=== PATIENT | male | born 1995 | race Two or more races ===

== ENCOUNTER 2020-06-06 20:51 | Emergency (ER) | payer SELFPAY ==
[2020-06-06 20:59] VITALS: BP 152/89; PULSE 119; RESP 18; TEMP 36.9; O2SAT 96; BMI 45.9
[2020-06-06 21:12] LABS: Glucose Urine UA >=1000 MG/DL (NEG); Leukocyte Esterase Urine NEG (NEG); Nitrite Urine NEG (NEG); Specific Gravity - Urine <= 1.005 (1.005-1.025); Urine Blood NEG (NEG); Urine Ketones NEG (NEG); Urine Protein NEG (NEG-TRACE)
[2020-06-06 21:14] LABS: Appearance Urine CLEAR; Color Urine YELLOW
[2020-06-06 21:17] LABS: RBC Urine 0 /HPF (0); WBC Urine 0 /HPF (0-4)
--- NOTE | 2020-06-06 21:33 | ED_ITS ---
HPI - Male Genitourinary General Chief complaint: Urogenital-Male Stated complaint: urinary frequency Time Seen by Provider: 06/06/20 21:17 Source: patient Mode of arrival: ambulatory Limitations: no limitations History of Present Illness HPI Narrative: patient comes to emergency room complaining of 1 week of incre ased urination and thirst. Patient states both of his parents are diabetic and his concern that he may have diabetes. Patient denies any abdominal pain, no changes in weight, no pain with urination. patient states that he has been urinating approximately 15-20 times per day Related Data Previous Rx's Medication Instructions Recorded metformin 500 mg PO BID #90 tab 06/07/20 Allergies Allergy/AdvReac Type Severity Reaction Status Date / Time peach [PEACH] Allergy Intermediate ITCHING Verified 06/06/20 20:59 avocado Allergy Anaphylaxis Verified 06/06/20 20:59 SEASONAL ALLERGIES Allergy Unknown RUNNY NOSE Uncoded 03/26/20 16:26 Review of Systems Review of Systems: Constitutional : No Weight loss, No Fever, No Chills, No Night Sweats, No Fatigue, No Malaise ENT/Mouth : No Hearing loss, No Ear Pain, No Nasal Congestion, No Sinus Pain, No Hoarseness, No sore throat, No Rhinorrhea, No Swallowing Difficulty Eyes: No Eye Pain, No Swelling, No Redness, No Foreign Body, No Discharge, No Vision Changes Cardiovascular : No Chest Pain, No SOB, No Dyspnea on Exertion, No Orthopnea, No Edema, No Palpitations Respiratory : No Cough, No Sputum, No Wheezing, No Smoke Exposure, No Dyspnea Gastrointestinal : No Nausea, No Vomiting, No Diarrhea, No Constipation, No abdominal Pain, No Hematochezia, No Melena Genitourinary : no irregular bleeding, No Dysuria, No Urinary Frequency, No Hematuria, No Urinary Incontinence, No Urgency, No Flank Pain, No Urinary Flow Changes, No Hesitancy Musculoskeletal : No joint pain, No Myalgias, No Joint Swelling Skin : No Skin Lesions, No rash Neuro : No Weakness, No Numbness, No Paresthesias, No Loss of Consciousness, No Dizziness, No Headache Psych : No Anxiety/Panic, No Depression, No SI/HI/AH/VH, No Social Issues, Heme/Lymph: No Bruising, No Bleeding,No Lymphadenopathy Endocrine : complaining of polyuria and polydipsia, No Temperature Intolerance PMFSH Past Medical History Medical History Pneumothorax Surgical History (Updated 06/06/20 @ 21:02 by Emmie Levine) History of appendectomy Social History Social History Smoked in Last 30 Days: Yes Use of substances other than those prescribed or required for medical reasons: No Advance Directives: No Advance Directives Information Provided: Yes Physical Exam Vital Signs: Vital Signs: Last Vital Signs Temp 98.0 F 06/07/20 01:30 Pulse 97 06/07/20 01:30 Resp 18 06/07/20 01:30 BP 132/80 06/07/20 01:30 Pulse Ox 99 06/07/20 01:30 Body Mass Index 45.9 Appearance: Alert. Oriented X3. No acute distress. Eyes: Pupils equal, round and reactive to light. ENT: Pharynx normal. Neck: Normal inspection. Neck supple. No lymph nodes noted. No crepitus CVS: Normal heart rate and rhythm. Pulses normal. Normal S1 and S2 Respiratory: No respiratory distress. Breath sounds normal. No Wheezing. No rales Abdomen: Soft and nontender. No rigidity. No distention. good BS x4 Skin: Skin warm and dry. Normal skin color. Normal skin turgor. Extremities: No lower extremity edema. No lower extremity edema. No Lacerations. No Rash Neuro: Oriented X 3. No motor deficit. No sensory deficit. Moving all extermities. No slurred speech. Course Course Course Narrative: patient had 20 units of insulin and 1.5 L NS, BG now 405. Plan is to check BS again after 2L total, likely d/c home with DM meds sign out given to Dr. Nguyễn MDM - Male Genitourinary Lab Data Result diagrams: 06/06/20 22:14 06/06/20 22:14 Labs: Lab Results 06/06/20 06/06/20 06/06/20 Range/Units 21:03 22:14 22:14 WBC 8.4 (4.8-10.8) X10*3/uL RBC 5.48 (4.60-5.80) X10*6/uL Hgb 15.6 (14.0-18.0) g/dl Hct 44.6 (42-52) % MCV 81.4 (80-98) fL MCH 28.5 (27.0-33.0) pg MCHC 35.0 (31.0-36.0) g/dl RDW 12.2 (11.0-16.0) % Plt Count 189 (160-400) X10*3/uL MPV 12.4 (9.4-12.4) fL Immature Gran % (Auto) 0.2 (0.0-0.4) % Neut % (Auto) 76.9 H (45-73) % Lymph % (Auto) 15.9 L (20-40) % [place] % (Auto) 4.4 (2-11) % Eos % (Auto) 2.4 (0-4) % Baso % (Auto) 0.2 (0-2) % Lymph # (Auto) 1.3 (1.2-4.9) X10*3/uL [place] # (Auto) 0.4 (0.1-1.2) X10*3/uL Eos # (Auto) 0.2 (0.0-0.4) X10*3/uL Baso # (Auto) 0.0 (0.0-0.2) X10*3/uL Abs Immat Gran (auto) 0.02 (0.00-0.03) X10*3/uL Absolute Neuts (auto) 6.5 (2.0-8.3) X10*3/uL Absolute Nucleated RBC 0.000 (0.0-0.012) X10*3/uL Nucleated RBC % (auto) 0.0 (0.0-0.2) /100WBC Sodium 131 L (135-145) mmol/L Potassium 4.9 (3.3-5.1) mmol/l Chloride 95 L (96-108) mmol/L Carbon Dioxide 24 (22-29) mmol/L Anion Gap 17 (12-20) BUN 18 H (9-16) mg/dL Creatinine 2.00 H (0.5-1.4) mg/dL Estim Creat Clear Calc 75.8 Estimated GFR 41 POC Glucose (60-115) mg/dL Random Glucose 852 H* (60-115) mg/dL Calcium 9.4 (8.4-10.2) mg/dL Total Bilirubin 0.6 (0.0-1.0) mg/dL Direct Bilirubin 0.2 (0.0-0.5) mg/dL AST 29 (5-37) U/L ALT 58 H (0-40) U/L Alkaline Phosphatase 116 (39-117) U/L Total Protein 8.1 H (6.5-8.0) g/dL Albumin 4.6 (3.5-5.0) g/dL Urine Color YELLOW Urine Appearance CLEAR Urine pH 5.0 (5.0-8.0) Ur Specific [place] <= 1.005 (1.005-1.025) Urine Protein NEG (NEG-TRACE) MG/DL Urine Glucose (UA) >=1000 H (NEG) MG/DL Urine Ketones NEG (NEG) MG/DL Urine Blood NEG (NEG) Urine Nitrite NEG (NEG) Ur Leukocyte Esterase NEG (NEG) Urine RBC 0 (0) /HPF Urine WBC 0 (0-4) /HPF Ur Squamous Epith Cells NONE /LPF Urine Bacteria NONE /LPF 06/06/20 06/07/20 Range/Units 22:14 01:16 WBC (4.8-10.8) X10*3/uL RBC (4.60-5.80) X10*6/uL Hgb (14.0-18.0) g/dl Hct (42-52) % MCV (80-98) fL MCH (27.0-33.0) pg MCHC (31.0-36.0) g/dl RDW (11.0-16.0) % Plt Count (160-400) X10*3/uL MPV (9.4-12.4) fL Immature Gran % (Auto) (0.0-0.4) % Neut % (Auto) (45-73) % Lymph % (Auto) (20-40) % [place] % (Auto) (2-11) % Eos % (Auto) (0-4) % Baso % (Auto) (0-2) % Lymph # (Auto) (1.2-4.9) X10*3/uL [place] # (Auto) (0.1-1.2) X10*3/uL Eos # (Auto) (0.0-0.4) X10*3/uL Baso # (Auto) (0.0-0.2) X10*3/uL Abs Immat Gran (auto) (0.00-0.03) X10*3/uL Absolute Neuts (auto) (2.0-8.3) X10*3/uL Absolute Nucleated RBC (0.0-0.012) X10*3/uL Nucleated RBC % (auto) (0.0-0.2) /100WBC Sodium (135-145) mmol/L Potassium (3.3-5.1) mmol/l Chloride (96-108) mmol/L Carbon Dioxide (22-29) mmol/L Anion Gap (12-20) BUN (9-16) mg/dL Creatinine (0.5-1.4) mg/dL Estim Creat Clear Calc Estimated GFR POC Glucose 535 H* (60-115) mg/dL Random Glucose (60-115) mg/dL Calcium (8.4-10.2) mg/dL Total Bilirubin (0.0-1.0) mg/dL Direct Bilirubin (0.0-0.5) mg/dL AST (5-37) U/L ALT (0-40) U/L Alkaline Phosphatase (39-117) U/L Total Protein (6.5-8.0) g/dL Albumin (3.5-5.0) g/dL Urine Color Cancelled Urine Appearance Cancelled Urine pH Cancelled (5.0-8.0) Ur Specific [place] Cancelled (1.005-1.025) Urine Protein Cancelled (NEG-TRACE) MG/DL Urine Glucose (UA) Cancelled (NEG) MG/DL Urine Ketones Cancelled (NEG) MG/DL Urine Blood Cancelled (NEG) Urine Nitrite Cancelled (NEG) Ur Leukocyte Esterase Cancelled (NEG) Urine RBC (0) /HPF Urine WBC (0-4) /HPF Ur Squamous Epith Cells /LPF Urine Bacteria /LPF Discharge Plan Discharge Clinical Impression: New onset type 2 diabetes mellitus, Hyperglycemia Patient Disposition: Home, Self-Care Instructions: Type 2 Diabetes in Adults: New Diagnosis (ED), Diabetes and Nutrition (ED), Diabetes and Exercise (ED) Additional Instructions: Please follow-up with your primary care physician tomorrow. If you have any worsening or new symptoms, please return to the emergency room or call 911 Prescriptions: New metformin 500 mg tablet 500 mg PO BID Qty: 90 RF: 0
[2020-06-06 22:00] VITALS: BP 135/69; PULSE 60; RESP 18; TEMP 36.6; O2SAT 99
[2020-06-06 22:22] LABS: MANUAL DIFF FLAG NO
[2020-06-06 22:25] LABS: Basophils Percent Auto 0.2 % (0-2); Eosinophils Absolute Auto 0.2 X10*3/uL (0.0-0.4); Eosinophils Percent Auto 2.4 % (0-4); Hematocrit 44.6 % (42-52); Hemoglobin 15.6 g/dl (14.0-18.0); Imm Gran Abs Auto 0.02 X10*3/uL (0.00-0.03); Imm Gran Pct Auto 0.2 % (0.0-0.4); Lymphocytes Absolute Auto 1.3 X10*3/uL (1.2-4.9); Lymphocytes Percent Auto 15.9 % (20-40); Mean Corpuscular Hemoglobin 28.5 pg (27.0-33.0); Mean Corpuscular Volume 81.4 fL (80-98); Mean Platelet Volume 12.4 fL (9.4-12.4); Monocytes Absolute Auto 0.4 X10*3/uL (0.1-1.2); Monocytes Percent Auto 4.4 % (2-11); Neutrophils Absolute Auto 6.5 X10*3/uL (2.0-8.3); Neutrophils Percent Auto 76.9 % (45-73); Platelet Count 189 X10*3/uL (160-400); Red Blood Count 5.48 X10*6/uL (4.60-5.80); Red Cell Distribution Width 12.2 % (11.0-16.0); White Blood Count 8.4 X10*3/uL (4.8-10.8)
[2020-06-06 22:57] LABS: Alanine Aminotransferase 58 U/L (0-40); Albumin Level 4.6 g/dL (3.5-5.0); Alkaline Phosphatase 116 U/L (39-117); Anion Gap 17 (12-20); Aspartate Amino Transferase 29 U/L (5-37); Bilirubin Direct 0.2 mg/dL (0.0-0.5); Bilirubin Total 0.6 mg/dL (0.0-1.0); Blood Urea Nitrogen 18 mg/dL (9-16); Calcium 9.4 mg/dL (8.4-10.2); Carbon Dioxide 24 mmol/L (22-29); Chloride 95 mmol/L (96-108); Creatinine Clr Calc Pharmacy 75.8; Estimated Glomerular Filt Rate 41; Potassium 4.9 mmol/l (3.3-5.1); Sodium 131 mmol/L (135-145); Total Protein 8.1 g/dL (6.5-8.0)
[2020-06-06 23:11] LABS: Glucose Random 852 mg/dL (60-115)
[2020-06-07] MEDS: 0.9 % Sodium Chloride 1,000 ML 999 ML IVCONT ×2 (00:24→01:40)
[2020-06-07] MEDS: Insulin Regular, Human 100 UNIT/ML 3 ML VIAL 10 UNIT IVPUSH ×2 (00:25→01:40)
[2020-06-07 00:29] VITALS: BP 127/90; PULSE 89; RESP 16
--- NOTE | 2020-06-07 00:31 | PC.NURSE ---
PT DENIES ANY SOB OR CHEST PAIN. NO N/V. IV AND LABS SENT. MEDICATED PER SEP. PT CHANGE INTO HOSPITAL ATTIRE. NO SIGNS OF DISTRESS AT THIS TIME. WILL CONTINUE TO MONITOR POC-GULCOSE
[2020-06-07 01:19] LABS: Glucose, Whole Blood 535 mg/dL (60-115)
--- NOTE | 2020-06-07 01:19 | PC.NURSE ---
repeat glucose 535 provider aware. will medicate per mar
[2020-06-07 01:30] VITALS: BP 132/80; PULSE 97; RESP 18; TEMP 36.7; O2SAT 99
--- NOTE | 2020-06-07 01:41 | PC.NURSE ---
MEDICATED PER MAR. NO SIGN OF DISTRESS.
--- NOTE | 2020-06-07 02:29 | PC.NURSE ---
repeat glucose point of care 405, provider is aware.
[2020-06-07 02:57] LABS: Glucose, Whole Blood 405 mg/dL (60-115)
[2020-06-07 03:04] LABS: Glucose, Whole Blood 392 mg/dL (60-115)
[2020-06-07] MEDS: Insulin Regular, Human 100 UNIT/ML 3 ML VIAL SUBCUT (03:24)
--- NOTE | 2020-06-07 03:25 | PC.NURSE ---
MEDICATED PER MAR.
[2020-06-07 04:24] LABS: Glucose, Whole Blood 381 mg/dL (60-115)
[2020-06-07 04:43] LABS: Anion Gap 15 (12-20); Blood Urea Nitrogen 16 mg/dL (9-16); Calcium 8.6 mg/dL (8.4-10.2); Carbon Dioxide 23 mmol/L (22-29); Chloride 99 mmol/L (96-108); Creatinine Clr Calc Pharmacy 124.3; Estimated Glomerular Filt Rate > 60; Glucose Random 370 mg/dL (60-115); Potassium 3.9 mmol/l (3.3-5.1); Sodium 133 mmol/L (135-145)
[2020-06-07 04:53] VITALS: RESP 16
--- NOTE | 2020-06-07 04:54 | PC.NURSE ---
Educated on discharge instruction and medications. pt given a list of pcp.
[2020-06-07 07:38] LABS: Estimated Average Glucose 263 mg/dL; Hemoglobin A1c % 10.8 %
== END 2020-06-07 05:08 | disposition home or self-care (01) ==
PROVIDERS: Student in an Organized Health Care Education/Training Program; Emergency Provider Emergency Medicine
DX: E11.65 Type 2 diabetes mellitus with hyperglycemia (principal); R35.0 Frequency of micturition; Z79.899 Other long term (current) drug therapy
CPT/HCPCS: 36415; 80048; 80076; 81001; 82947; 83036; 85025; 96361; 96374; 96376; 99284

== ENCOUNTER 2020-10-28 12:24 | Outpatient (REF) | payer OTHER, SELFPAY | END 2020-10-28 12:25 | disposition home or self-care (01) | LOC: HO.LAB 12:24 | PROVIDERS: Visit Provider Internal Medicine | DX: Z20.822 Contact with and (suspected) exposure to COVID-19 (principal) | CPT/HCPCS: C9803; U0003; U0005 ==

== ENCOUNTER 2020-11-04 14:40 | Outpatient (REF) | payer OTHER, SELFPAY ==
[2020-11-04 15:04] LABS: COVID-19 Test Negative (Negative)
== END 2020-11-04 14:41 | disposition home or self-care (01) ==
LOC: HO.LAB 14:40
PROVIDERS: Visit Provider Internal Medicine
DX: Z20.822 Contact with and (suspected) exposure to COVID-19 (principal)
CPT/HCPCS: 36415; 87635; C9803

== ENCOUNTER 2021-06-24 19:12 | Emergency (ER) | payer MEDICAID, SELFPAY ==
[2021-06-24 19:19] VITALS: BP 128/87; PULSE 98; RESP 20; TEMP 36.6; O2SAT 95; BMI 38.0
[2021-06-24 23:27] VITALS: BP 123/77; PULSE 87; RESP 15; TEMP 37.1; O2SAT 98
--- NOTE | 2021-06-25 00:20 | ED.GENADULT ---
HPI - General Adult General Chief complaint: General Medical Stated complaint: hand head and feet ...bumps Time Seen by Provider: 06/25/21 00:20 Source: patient Mode of arrival: ambulatory Limitations: no limitations History of Present Illness HPI narrative: 25-year-old male came in for evaluation of hand mouse and feet viral infection, also complaining of left ear pain and sore throat. Patient's son was recently diagnosed with hand, feet, mouth syndrome. Patient is sexually active with 1 partner declined any risk for STD, declined Penile discharge. Related Data Previous Rx's Medication Instructions Recorded metformin 500 mg tablet 500 mg PO BID #90 tab 06/07/20 amoxicillin 500 mg tablet 500 mg PO BID #14 tab 06/25/21 Allergies Allergy/AdvReac Type Severity Reaction Status Date / Time peach [PEACH] Allergy Intermediate ITCHING Verified 06/06/20 20:59 avocado Allergy Anaphylaxis Verified 06/06/20 20:59 SEASONAL ALLERGIES Allergy Unknown RUNNY NOSE Uncoded 03/26/20 16:26 Review of Systems Review of Systems: all other systems are reviewed and are negative Constitutional: Reports as per HPI and Reports no additional constitutional complaints Eyes: Reports as per HPI and Reports no additional eye complaints Reports system reviewed and no additional complaints, except as documented Cardiovascular: Reports as per HPI and Reports no additional cardiovascular complaints Respiratory: Reports as per HPI and Reports no additional respiratory complaints Gastrointestinal: Reports as per HPI and Reports no additional gastrointestinal complaints Genitourinary: Reports no additional female genitourinary complaints Musculoskeletal: Reports no additional musculoskeletal complaints Skin/Breast: Reports system reviewed and no additional complaints, except as docu Psychiatric: Reports no additional psychiatric complaints Endocrine: Reports no additional endocrine complaints Hematologic/Lymphatic: Reports no additional hematologic/lymphatic complaints Allergic/Immunologic: Reports no additional allergic/immunologic complaints Reports system reviewed and no additional complaints, except as documented and Reports Abnormal speech present [facility] Past Medical History Medical History Pneumothorax Surgical History History of appendectomy Social History Social History Advance Directives: No Advance Directives Information Provided: No Physical Exam Vital Signs: Vital Signs: Last Vital Signs Temp 98.8 F 06/24/21 23:27 Pulse 87 06/24/21 23:27 Resp 15 06/24/21 23:27 BP 123/77 06/24/21 23:27 Pulse Ox 98 06/24/21 23:27 BMI result Body Mass Index 38.0 vital signs have been reviewed as appeared to be correct. Blood pressure normal. Heart rate normal. Respiration rate normal. Temperature normal. Oxygen saturation normal. Appearance: Alert. Oriented X3. No acute distress. Head: Normal external exam. Normocephalic. Atraumatic. No Kern signs noted. No raccoon eyes noted Eyes: PERRLA. EOMI. Conjunctiva and sclera normal. Eyelids normal. ENT: left TM erythema, no bulging, no drainage. pharyngeal erythema. Uvula midline. Moist mucous membranes. No trismus noted. No drooling noted. No muffled voice noted. Neck: Normal inspection. Neck supple. FROM. No adenopathy. Thyroid Normal. No meningeal signs. No neck mass noted. CVS: Normal heart rate and rhythm. Heart sound normal. No murmurs noted. Pulses normal throughout. Respiratory: No respiratory distress. Painless inspiration. Breath sounds normal. No wheezes/rales/rhonchi noted. Chest nontender. No accessory muscle usage noted or decreased air movement noted. Abdomen: Soft and nontender. Bowel sounds normal in all 4 quadrants. No distention noted. No organomegaly noted. No visible injury noted. Back: No CVA tenderness. Full range of motion noted. Skin: Skin warm and dry. Normal skin color. Normal skin turgor. No rashes/lesions/lacerations noted. Extremities: fine papular rash on dorsum of both hands and solar aspect of both feet. Neuro: Oriented X 3. Cranial nerve exam: II-XII are grossly intact No motor deficit. No sensory deficit. Reflexes normal. Course Course Course Narrative: Assessment and plan. 25-year-old male contracted viral infection from son and left ear otitis media. As discussed with the patient to use Tylenol/ibuprofen for fever, amoxicillin for the left ear infection. Discharge Plan Discharge Clinical Impression: Hand, foot and mouth disease, Acute left otitis media Patient Disposition: Home, Self-Care Instructions: Ear Infection (ED), Hand, Foot, and Mouth Disease (ED) Prescriptions: New amoxicillin 500 mg tablet 500 mg PO BID Qty: 14 RF: 0 No Action metformin 500 mg tablet 500 mg PO BID Qty: 90 RF: 0 Referrals: Physician,None [Primary Care Provider] - 2 days Stand Alone Forms: Work/School Release
[2021-06-25] MEDS: Amoxicillin 500 MG CAPSULE PO (00:33)
== END 2021-06-25 00:35 | disposition home or self-care (01) ==
PROVIDERS: Emergency Provider Emergency Medicine
DX: B08.4 Enteroviral vesicular stomatitis with exanthem (principal); H66.92 Otitis media, unspecified, left ear; J02.9 Acute pharyngitis, unspecified
CPT/HCPCS: 99283

== ENCOUNTER 2021-12-28 15:00 | Emergency (ER) | payer MEDICAID, SELFPAY ==
[2021-12-28 15:21] VITALS: BP 132/85; PULSE 92; RESP 18; TEMP 37.1; O2SAT 97; BMI 36.3
[2021-12-28 15:42] LABS: Hematocrit 45.3 % (42.0-52.0); Hemoglobin 15.5 g/dl (14.0-18.0); Mean Corpuscular HGB Conc 34.2 g/dl (31.0-36.0); Mean Corpuscular Hemoglobin 27.8 pg (27.0-33.0); Mean Corpuscular Volume 81.2 fL (80.0-98.0); Mean Platelet Volume 11.8 fL (9.4-12.4); Platelet Count 154 X10*3/uL (160-400); Red Blood Count 5.58 X10*6/uL (4.60-5.80); Red Cell Distribution Width 12.1 % (11.0-16.0); White Blood Count 6.5 X10*3/uL (4.8-10.8)
[2021-12-28 15:54] LABS: COVID-19 Test Negative (Negative)
[2021-12-28 16:02] LABS: Anion Gap 13 (12-20); Blood Urea Nitrogen 10 mg/dL (9-16); Calcium 9.8 mg/dL (8.4-10.2); Carbon Dioxide 30 mmol/L (22-29); Chloride 97 mmol/L (96-108); Estimated Glomerular Filt Rate 51; Glucose Random 669 mg/dL (60-115); Potassium 4.5 mmol/L (3.3-5.1); Sodium 135 mmol/L (135-145)
--- NOTE | 2021-12-28 16:08 | PC.NURSE ---
Patient takes metformin for diabetes. Reports he has not taken his metformin in about one week.
[2021-12-28 16:09] VITALS: BP 105/69; PULSE 89; RESP 18; TEMP 36.9; O2SAT 96
--- NOTE | 2021-12-28 16:11 | ED.RECABL ---
HPI - Recheck/Abnormal Lab/Rx General Chief Complaint: Recheck/Abnormal Lab/Rx Stated Complaint: high BS Time Seen by Provider: 12/28/21 16:10 Source: patient Mode of arrival: ambulatory Limitations: no limitations History of Present Illness HPI narrative: 24-year-old male with a past medical history of diabetes on metformin sent here by PCP for increased blood sugar. Patient is on 500 metformin b.i.d., but states he has not been taking it for the last week. States that things have been stressful, cannot really tell me why he is not taking it. Said that this morning he felt that his blood sugar was high because he had a dry mouth and increased urination. Patient tells me his blood glucose is 360 at baseline, it has been this for the last few months even when he does take his medication. Patient was diagnosed diabetic 2 years ago, has a significant family history of diabetes, when he was diagnosed he weighed over 300 lb. Patient states he lost 80 lb in the last 2 years. Patient has no chest pain, shortness of breath, abdominal pain, nausea, vomiting, diarrhea, cough, fevers, headache, blurry vision states he feels fine other than having a dry mouth and increased urination. Related Data Previous Rx's Medication Instructions Recorded metformin 500 mg tablet 500 mg PO BID #90 tabs 06/07/20 amoxicillin 500 mg tablet 500 mg PO BID #14 tabs 06/25/21 Allergies Allergy/AdvReac Type Severity Reaction Status Date / Time peach [PEACH] Allergy Intermediate ITCHING Verified 06/06/20 20:59 avocado Allergy Anaphylaxis Verified 06/06/20 20:59 SEASONAL ALLERGIES Allergy Unknown RUNNY NOSE Uncoded 03/26/20 16:26 Review of Systems Constitutional: Constitutional: Denies body ache(s), Denies chills, Denies fatigue, Denies fever(s), Denies headache(s), Denies malaise and Denies weakness Eyes: Eyes: Denies blurry vision, Denies change in vision and Denies diplopia ENT: Denies vertigo, Denies dizziness, Denies otalgia, Denies headache(s), Denies mouth pain, Denies post nasal drip, Denies sinus pain, Denies sinus pressure, Denies sore throat, Denies throat swelling and Reports other ( Dry mouth) Cardiovascular: Cardiovascular: Denies chest pain, Denies syncope, Denies leg edema, Denies lightheadedness, Denies Loss of Consciousness, Denies palpitations and Denies dyspnea Respiratory: Respiratory: Denies chest congestion, Denies cough and Denies dyspnea Gastrointestinal: Gastrointestinal: Denies abdominal pain, Denies hematochezia, Denies constipation, Denies diarrhea, Denies nausea and Denies vomiting Genitourinary: Genitourinary: Denies oliguria, Denies dysuria and Reports nocturia Musculoskeletal: Musculoskeletal: Reports no additional musculoskeletal complaints Neurologic: Denies confusion, Denies vertigo, Denies dizziness, Denies syncope, Denies headache(s) and Denies weakness Psychiatric: Psychiatric: Denies anxiety, Denies confusion and Denies depression Endocrine: Endocrine: Denies fatigue and Denies palpitations Allergic/Immunologic: Allergic/Immunologic: Denies throat swelling [facility] Past Medical History [facility] Narrative: diabetes Medical History Pneumothorax Surgical History History of appendectomy Social History Social History Advance Directives: No Advance Directives Information Provided: No Physical Exam Vital Signs: Vital Signs: Last Vital Signs Temp 98.4 F 12/28/21 16:09 Pulse 89 12/28/21 16:09 Resp 18 12/28/21 16:09 BP 105/69 12/28/21 16:09 Pulse Ox 96 12/28/21 16:09 O2 Del Method 12/28/21 16:09 BMI result Body Mass Index 36.3 Const: General: No confusion Nutritional Appearance: well nourished Orientation/consciousness: No confusion Limitations: no limitations HEENT: Head: Yes normal to inspection, Yes normocephalic and Yes atraumatic Ears: hearing grossly normal bilaterally, external ears normal, TM's normal bilaterally and EAC's normal General nose exam: Normal external nose present Face and sinus: Yes normal facial exam and Yes sinuses nontender Mouth: Normal oral and palatal mucosa present Throat: Yes posterior oropharynx normal Eyes: Conjunctivae: conjunctivae normal Pupils: Equal, round and reactive pupils present EOM: EOMs intact bilaterally Neck: Neck: Yes full ROM, Yes no lymphadenopathy and Yes supple Resp: Effort & Inspection: normal respiratory effort and able to speak in complete sentences Auscultation: clear to auscultation bilaterally, no crackles, no rales, no rhonchi and no wheezes Cardio: Rate: regular rate Rhythm: regular rhythm Heart sounds: S1 normal heart sound present and S2 normal heart sound present GI: Inspection: Yes normal to inspection Palpation (GI): Soft to palpation, nontender, no guarding and not rigid Percussion: Yes normal to percussion Auscultation: normal bowel sounds Skin: General skin exam: no rashes or lesions noted Neuro: General: No confusion Cranial nerves: Yes Equal, round and reactive pupils present Extrem: General: Yes normal to inspection and Yes full ROM Psych: Appearance: grossly normal Affect: normal affect Attitude: cooperative Thought process: Normal thought process present Course Course Course Narrative: 26-year-old diabetic male who is noncompliant with his medication which is metformin 500 b.i.d., presents for hyperglycemic symptoms of dry mouth frequent urination, sent here by PCP for high blood sugar at home. On exam, patient is well-appearing, stable vitals, no abdominal tenderness, he is alert and oriented patient has a creatinine of 1.62, he has a normal anion gap of 13, normal sodium of 135, normal potassium 4.5, venous blood gas shows a pH of 7.35, with a bicarb of 32. Patient's bicarb on blood chemistries is 30 a.m.. Patient has negative acetone. Urine shows no ketones, the patient is spilling sugar, patient also has trace leukocyte esterase and small amount of white blood cells. Patient tells me he needs to be circumcised, he had an injury to his penis, and is having a hard time cleaning the tip of his penis. I will treat patient's UTI with cephalexin and refer him to Urology for follow-up of this issue patient is hyperglycemic at a blood sugar of 669. However he is not in diabetic ketoacidosis as evidenced by his normal blood pH, lack of ketones in his blood or urine. Gave 10 units of insulin, giving fluids, anticipate patient being here for several hours to get more fluids and get his blood sugar to a reasonable point so he can be discharged home repeat BMP shows blood glucose of 278, creatinine 1.18. Patient states his blood sugar runs in the 300s, patient will be safe to discharge home with follow-up with PCP. Discussed with patient the importance of taking his medication, discussed that he most likely needs a higher dose of metformin as well as to comply with his medication regime prescribed antibiotics to treat UTI, gave return precautions of abdominal pain, vomiting, headache, blurry vision, increased thirst, increased urination, increased hunger, chest pain, shortness of breath, fevers, return to emergency room. Patient verbalized agreement and understanding of the plan MDM - Recheck/Abnormal Lab/Rx Lab Data Result diagrams: 12/28/21 15:34 12/28/21 18:25 Labs: Lab Results 12/28/21 12/28/21 12/28/21 Range/Units 15:34 15:34 15:34 WBC 6.5 (4.8-10.8) X10*3/uL RBC 5.58 (4.60-5.80) X10*6/uL Hgb 15.5 (14.0-18.0) g/dl Hct 45.3 (42.0-52.0) % MCV 81.2 (80.0-98.0) fL MCH 27.8 (27.0-33.0) pg MCHC 34.2 (31.0-36.0) g/dl RDW 12.1 (11.0-16.0) % Plt Count 154 L (160-400) X10*3/uL MPV 11.8 (9.4-12.4) fL Absolute Nucleated RBC 0.000 (0.0-0.012) X10*3/uL Nucleated RBC % (auto) 0.0 (0.0-0.2) /100WBC VBG pH (7.32-7.43) VBG pCO2 mmHg VBG pO2 mmHg VBG HCO3 (22-26) mmol/L VBG O2 Saturation % VBG Base Excess mmol/L Sodium 135 (135-145) mmol/L Potassium 4.5 (3.3-5.1) mmol/L Chloride 97 (96-108) mmol/L Carbon Dioxide 30 H (22-29) mmol/L Anion Gap 13 (12-20) BUN 10 (9-16) mg/dL Creatinine 1.62 H (0.5-1.4) mg/dL Estim Creat Clear Calc 81.0 Estimated GFR 51 POC Glucose (60-115) mg/dL Random Glucose 669 H* (60-115) mg/dL Calcium 9.8 D (8.4-10.2) mg/dL Urine Color Urine Appearance Urine pH (5.0-8.0) Ur Specific [place] (1.005-1.025) Urine Protein (NEG-TRACE) MG/DL Urine Glucose (UA) (NEG) MG/DL Urine Ketones (NEG) MG/DL Urine Blood (NEG) Urine Nitrite (NEG) Ur Leukocyte Esterase (NEG) Urine RBC (0) /HPF Urine WBC (0-4) /HPF Ur Squamous Epith Cells /LPF Urine Bacteria /LPF Urine Yeast /HPF Acetone, Qual (Negative) COVID-19 (REID) Negative (Negative) COVID-19 Clin Com See Note 12/28/21 12/28/21 12/28/21 Range/Units 16:27 16:27 16:28 WBC (4.8-10.8) X10*3/uL RBC (4.60-5.80) X10*6/uL Hgb (14.0-18.0) g/dl Hct (42.0-52.0) % MCV (80.0-98.0) fL MCH (27.0-33.0) pg MCHC (31.0-36.0) g/dl RDW (11.0-16.0) % Plt Count (160-400) X10*3/uL MPV (9.4-12.4) fL Absolute Nucleated RBC (0.0-0.012) X10*3/uL Nucleated RBC % (auto) (0.0-0.2) /100WBC VBG pH 7.35 (7.32-7.43) VBG pCO2 57 mmHg VBG pO2 28 mmHg VBG HCO3 32 H (22-26) mmol/L VBG O2 Saturation 39.0 % VBG Base Excess 4.9 mmol/L Sodium (135-145) mmol/L Potassium (3.3-5.1) mmol/L Chloride (96-108) mmol/L Carbon Dioxide (22-29) mmol/L Anion Gap (12-20) BUN (9-16) mg/dL Creatinine (0.5-1.4) mg/dL Estim Creat Clear Calc Estimated GFR POC Glucose (60-115) mg/dL Random Glucose (60-115) mg/dL Calcium (8.4-10.2) mg/dL Urine Color YELLOW Urine Appearance CLEAR Urine pH 6.0 (5.0-8.0) Ur Specific [place] <= 1.005 (1.005-1.025) Urine Protein NEG (NEG-TRACE) MG/DL Urine Glucose (UA) >=1000 H (NEG) MG/DL Urine Ketones NEG (NEG) MG/DL Urine Blood 1+ H (NEG) Urine Nitrite NEG (NEG) Ur Leukocyte Esterase TRACE H (NEG) Urine RBC 1-4 (0) /HPF Urine WBC 5-9 H (0-4) /HPF Ur Squamous Epith Cells 1+ /LPF Urine Bacteria 1+ /LPF Urine Yeast 1+ /HPF Acetone, Qual Negative (Negative) COVID-19 (REID) (Negative) COVID-19 Clin Com 12/28/21 12/28/21 Range/Units 18:25 18:34 WBC (4.8-10.8) X10*3/uL RBC (4.60-5.80) X10*6/uL Hgb (14.0-18.0) g/dl Hct (42.0-52.0) % MCV (80.0-98.0) fL MCH (27.0-33.0) pg MCHC (31.0-36.0) g/dl RDW (11.0-16.0) % Plt Count (160-400) X10*3/uL MPV (9.4-12.4) fL Absolute Nucleated RBC (0.0-0.012) X10*3/uL Nucleated RBC % (auto) (0.0-0.2) /100WBC VBG pH (7.32-7.43) VBG pCO2 mmHg VBG pO2 mmHg VBG HCO3 (22-26) mmol/L VBG O2 Saturation % VBG Base Excess mmol/L Sodium 141 (135-145) mmol/L Potassium 3.6 (3.3-5.1) mmol/L Chloride 103 (96-108) mmol/L Carbon Dioxide 29 (22-29) mmol/L Anion Gap 13 (12-20) BUN 10 (9-16) mg/dL Creatinine 1.18 (0.5-1.4) mg/dL Estim Creat Clear Calc 111.2 Estimated GFR > 60 POC Glucose 287 H (60-115) mg/dL Random Glucose 278 H D (60-115) mg/dL Calcium 9.0 D (8.4-10.2) mg/dL Urine Color Urine Appearance Urine pH (5.0-8.0) Ur Specific [place] (1.005-1.025) Urine Protein (NEG-TRACE) MG/DL Urine Glucose (UA) (NEG) MG/DL Urine Ketones (NEG) MG/DL Urine Blood (NEG) Urine Nitrite (NEG) Ur Leukocyte Esterase (NEG) Urine RBC (0) /HPF Urine WBC (0-4) /HPF Ur Squamous Epith Cells /LPF Urine Bacteria /LPF Urine Yeast /HPF Acetone, Qual (Negative) COVID-19 (REID) (Negative) COVID-19 Clin Com Discharge Plan Discharge Clinical Impression: Acute hyperglycemia, Acute UTI Patient Disposition: Still a Patient Instructions: Urinary Tract Infection in Men (ED), Diabetic Hyperglycemia (ED) Additional Instructions: you have a urinary tract infection. I have prescribed antibiotics to [facility] [place]. I have also referred you to our urologist, Dr. eBrrios. He should be calling you, but if you do not hear from him in the next day or so, please, the following number [phone] please call your primary care provider to follow-up on your metformin doses that may need to be increased. Please take your medications as prescribed please return to emergency room for any new or concerning symptoms Prescriptions: No Action metformin 500 mg tablet 500 mg PO BID Qty: 90 0RF amoxicillin 500 mg tablet 500 mg PO BID Qty: 14 0RF Referrals: Albin Berrios MD [Physician] -
[2021-12-28] MEDS: 0.9 % Sodium Chloride 1,000 ML 999 ML IV (16:36)
[2021-12-28 16:46] LABS: Appearance Urine CLEAR; Color Urine YELLOW; Glucose Urine UA >=1000 MG/DL (NEG); Leukocyte Esterase Urine TRACE (NEG); Nitrite Urine NEG (NEG); Specific Gravity - Urine <= 1.005 (1.005-1.025); UACC Culture Trigger NO; Urine Blood 1+ (NEG); Urine Ketones NEG (NEG); Urine Protein NEG (NEG-TRACE)
[2021-12-28 16:49] LABS: VBG Base Excess 4.9 mmol/L; VBG HCO3 32 mmol/L (22-26); VBG pCO2 57 mmHg; VBG pH 7.35 (7.32-7.43); VBG pO2 28 mmHg
[2021-12-28 17:00] LABS: Acetone, serum QL Negative (Negative)
[2021-12-28 17:06] LABS: Bacteria Urine 1+ /LPF; Squamous Epithelial Cell Urine 1+ /LPF
[2021-12-28 17:08] LABS: UACC CULT YES
[2021-12-28] MEDS: Insulin Regular, Human 100 UNIT/ML 3 ML VIAL 10 UNIT IVPUSH (17:10)
[2021-12-28 17:38] LABS: Venous Blood Gas Refer to POC result
[2021-12-28] MEDS: cephALEXin 500 MG CAPSULE PO (18:09)
[2021-12-28 18:38] LABS: Glucose, Whole Blood 287 mg/dL (60-115)
[2021-12-28 18:52] LABS: Anion Gap 13 (12-20); Blood Urea Nitrogen 10 mg/dL (9-16); Carbon Dioxide 29 mmol/L (22-29); Chloride 103 mmol/L (96-108); Creatinine Clr Calc Pharmacy 111.2; Estimated Glomerular Filt Rate > 60; Glucose Random 278 mg/dL (60-115); Potassium 3.6 mmol/L (3.3-5.1); Sodium 141 mmol/L (135-145)
== END 2021-12-28 19:43 | disposition home or self-care (01) ==
PROVIDERS: Physician Assistant; Emergency Provider Student in an Organized Health Care Education/Training Program
DX: N39.0 Urinary tract infection, site not specified (principal); E11.65 Type 2 diabetes mellitus with hyperglycemia; R79.89 Other specified abnormal findings of blood chemistry; Z20.822 Contact with and (suspected) exposure to COVID-19; Z79.899 Other long term (current) drug therapy
CPT/HCPCS: 36415; 80048; 81001; 82009; 82803; 82947; 85027; 87086; 87635; 96361; 96374; 99283; 99284

== ENCOUNTER 2022-02-17 21:43 | Emergency (ER) | payer MEDICAID, SELFPAY ==
[2022-02-17 22:19] VITALS: BP 116/68; PULSE 86; RESP 18; TEMP 36.7; O2SAT 96; BMI 36.1
[2022-02-17 22:30] LABS: Glucose, Whole Blood > 600 mg/dL (60-115)
[2022-02-17 22:34] LABS: MANUAL DIFF FLAG NO
[2022-02-17 22:35] LABS: Basophils Percent Auto 0.3 % (0-2); Eosinophils Absolute Auto 0.2 X10*3/uL (0.0-0.4); Eosinophils Percent Auto 2.6 % (0-4); Hematocrit 44.8 % (42.0-52.0); Hemoglobin 15.6 g/dl (14.0-18.0); Imm Gran Abs Auto 0.01 X10*3/uL (0.00-0.03); Imm Gran Pct Auto 0.2 % (0.0-0.4); Lymphocytes Percent Auto 34.6 % (20-40); Mean Corpuscular HGB Conc 34.8 g/dl (31.0-36.0); Mean Corpuscular Hemoglobin 27.8 pg (27.0-33.0); Mean Corpuscular Volume 79.7 fL (80.0-98.0); Mean Platelet Volume 12.1 fL (9.4-12.4); Monocytes Absolute Auto 0.4 X10*3/uL (0.1-1.2); Monocytes Percent Auto 6.3 % (2-11); Neutrophils Absolute Auto 3.3 x10*3/uL (2.0-8.3); Platelet Count 161 X10*3/uL (160-400); Red Blood Count 5.62 X10*6/uL (4.60-5.80); Red Cell Distribution Width 12.3 % (11.0-16.0); White Blood Count 5.8 X10*3/uL (4.8-10.8)
[2022-02-17 23:00] LABS: Anion Gap 18 (12-20); Blood Urea Nitrogen 16 mg/dL (9-16); Calcium 9.1 mg/dL (8.4-10.2); Carbon Dioxide 23 mmol/L (22-29); Chloride 96 mmol/L (96-108); Creatinine Clr Calc Pharmacy 83.9; Estimated Glomerular Filt Rate 53; Glucose Random 715 mg/dL (60-115); Potassium 4.3 mmol/L (3.3-5.1); Sodium 133 mmol/L (135-145)
[2022-02-17 23:29] VITALS: BP 138/76; PULSE 89; RESP 20; TEMP 36.3; O2SAT 96
--- NOTE | 2022-02-17 23:42 | ED_ITS ---
HPI - General Adult General Chief complaint: General Medical Stated complaint: elevated blood sugars Time Seen by Provider: 02/17/22 23:00 Source: patient Mode of arrival: ambulatory Limitations: no limitations History of Present Illness HPI narrative: 26-year-old male history of type 2 diabetes controlled with metformin 1000 mg twice a day, patient ran out of his medication for the past 3 days, patient also admitted that is been having stress through his life. Patient noted that he is becoming thirsty and having frequent urination, came in today because his glucometer read as high blood sugar at home. Patient declined any suspicion of infection, no fever, no chills, no chest pain, no SOB, no coughing, no abdominal pain, no dysuria. Related Data Previous Rx's Medication Instructions Recorded metformin 500 mg tablet 500 mg PO BID #90 tabs 06/07/20 amoxicillin 500 mg tablet 500 mg PO BID #14 tabs 06/25/21 metformin 500 mg tablet 500 mg PO BID #90 tabs 02/18/22 Allergies Allergy/AdvReac Type Severity Reaction Status Date / Time peach [PEACH] Allergy Intermediate ITCHING Verified 06/06/20 20:59 avocado Allergy Anaphylaxis Verified 06/06/20 20:59 SEASONAL ALLERGIES Allergy Unknown RUNNY NOSE Uncoded 03/26/20 16:26 Review of Systems Review of Systems: All other systems are reviewed and are negative Constitutional: Reports as per HPI and Reports no additional constitutional complaints Eyes: Reports as per HPI and Reports no additional eye complaints Reports system reviewed and no additional complaints, except as documented Cardiovascular: Reports as per HPI and Reports no additional cardiovascular complaints Respiratory: Reports as per HPI and Reports no additional respiratory complaints Gastrointestinal: Reports as per HPI and Reports no additional gastrointestinal complaints Genitourinary: Reports no additional female genitourinary complaints Musculoskeletal: Reports no additional musculoskeletal complaints Skin/Breast: Reports system reviewed and no additional complaints, except as docu Psychiatric: Reports no additional psychiatric complaints Endocrine: Reports no additional endocrine complaints Hematologic/Lymphatic: Reports no additional hematologic/lymphatic complaints Allergic/Immunologic: Reports no additional allergic/immunologic complaints Reports system reviewed and no additional complaints, except as documented and Reports Abnormal speech presen. [facility] Past Medical History Medical History Pneumothorax Surgical History History of appendectomy Social History Social History Alcohol intake: current Alcohol intake frequency: holidays/special occasions only Patient Tobacco Use Status: Never used Tobacco Use of substances other than those prescribed or required for medical reasons: No Advance Directives: No Advance Directives Information Provided: No Physical Exam ED Vital Signs: Vital Signs - 24 hr 02/17/22 22:19 02/17/22 23:29 02/18/22 00:00 Temperature 98.1 F 97.3 F 97.8 F Pulse Rate 86 89 78 Respiratory Rate 18 20 Blood Pressure 116/68 138/76 116/65 Pulse Oximetry 96 96 97 Oxygen Delivery Method Room Air Room Air Room Air 02/18/22 02:00 Temperature Pulse Rate 66 Respiratory Rate Blood Pressure 107/66 Pulse Oximetry 98 Oxygen Delivery Method Room Air BMI result Body Mass Index 36.1 Vital signs have been reviewed as appeared to be correct. Blood pressure normal. Heart rate normal. Respiration rate normal. Temperature normal. Oxygen saturation normal. Appearance: Alert. Oriented X3. No acute distress. Head: Normal external exam. Normocephalic. Atraumatic. No Kern signs noted. No raccoon eyes noted Eyes: PERRLA. EOMI. Conjunctiva and sclera normal. Eyelids normal. ENT: TM's Normal. Pharynx normal. Uvula midline. Moist mucous membranes. No trismus noted. No drooling noted. No muffled voice noted. Neck: Normal inspection. Neck supple. FROM. No adenopathy. Thyroid Normal. No meningeal signs. No neck mass noted. CVS: Normal heart rate and rhythm. Heart sound normal. No murmurs noted. Pulses normal throughout. Respiratory: No respiratory distress. Painless inspiration. Breath sounds normal. No wheezes/rales/rhonchi noted. Chest nontender. No accessory muscle usage noted or decreased air movement noted. Abdomen: Soft and nontender. Bowel sounds normal in all 4 quadrants. No distention noted. No organomegaly noted. No visible injury noted. Back: No CVA tenderness. Full range of motion noted. Skin: Skin warm and dry. Normal skin color. Normal skin turgor. No rashes/lesions/lacerations noted. Extremities: No lower extremity edema. Extremities exhibit normal range of motion. Extremities nontender. Neuro: Oriented X 3. Cranial nerve exam: II-XII are grossly intact No motor deficit. No sensory deficit. Reflexes normal. Course Course Course Narrative: 26-year-old male with type 2 diabetes came in with hyperglycemia patient ran out of his medication for the past 3 days, patient require IV hydration and multiple doses of insulin and Glucophage blood sugar now is 257, no evidence of infection UA showing few WBCs but patient has no symptoms of UTI. Otherwise no coughing, no fever, no chills, no abdominal pain. Patient was instructed to follow-up with his PCP, patient has a refill of metformin enough until sees his PCP. Medical Decision Making Medical Records Medical records reviewed: Yes I reviewed the patient's medical records. Lab Data Lab results reviewed: Yes I reviewed the patient's lab results. Result diagrams: 02/17/22 22:30 02/17/22 22:30 Labs: Lab Results 02/17/22 02/17/22 02/17/22 Range/Units 22:23 22:30 22:30 WBC 5.8 (4.8-10.8) X10*3/uL RBC 5.62 (4.60-5.80) X10*6/uL Hgb 15.6 (14.0-18.0) g/dl Hct 44.8 (42.0-52.0) % MCV 79.7 L (80.0-98.0) fL MCH 27.8 (27.0-33.0) pg MCHC 34.8 (31.0-36.0) g/dl RDW 12.3 (11.0-16.0) % Plt Count 161 (160-400) X10*3/uL MPV 12.1 (9.4-12.4) fL Immature Gran % (Auto) 0.2 (0.0-0.4) % Neut % (Auto) 56.0 (45-73) % Lymph % (Auto) 34.6 (20-40) % [place] % (Auto) 6.3 (2-11) % Eos % (Auto) 2.6 (0-4) % Baso % (Auto) 0.3 (0-2) % Lymph # (Auto) 2.0 (1.2-4.9) X10*3/uL [place] # (Auto) 0.4 (0.1-1.2) X10*3/uL Eos # (Auto) 0.2 (0.0-0.4) X10*3/uL Baso # (Auto) 0.0 (0.0-0.2) X10*3/uL Abs Immat Gran (auto) 0.01 (0.00-0.03) X10*3/uL Absolute Neuts (auto) 3.3 (2.0-8.3) x10*3/uL Absolute Nucleated RBC 0.000 (0.0-0.012) X10*3/uL Nucleated RBC % (auto) 0.0 (0.0-0.2) /100WBC Sodium 133 L (135-145) mmol/L Potassium 4.3 (3.3-5.1) mmol/L Chloride 96 (96-108) mmol/L Carbon Dioxide 23 (22-29) mmol/L Anion Gap 18 (12-20) BUN 16 D (9-16) mg/dL Creatinine 1.56 H (0.5-1.4) mg/dL Estim Creat Clear Calc 83.9 Estimated GFR 53 POC Glucose > 600 H* (60-115) mg/dL Random Glucose 715 H* (60-115) mg/dL Calcium 9.1 (8.4-10.2) mg/dL Urine Color Urine Appearance Urine pH (5.0-8.0) Ur Specific [place] (1.005-1.025) Urine Protein (NEG-TRACE) MG/DL Urine Glucose (UA) (NEG) MG/DL Urine Ketones (NEG) MG/DL Urine Blood (NEG) Urine Nitrite (NEG) Ur Leukocyte Esterase (NEG) Urine RBC (0) /HPF Urine WBC (0-4) /HPF Ur Squamous Epith Cells /LPF Urine Bacteria /LPF 02/17/22 02/18/22 02/18/22 Range/Units 23:53 01:09 02:30 WBC (4.8-10.8) X10*3/uL RBC (4.60-5.80) X10*6/uL Hgb (14.0-18.0) g/dl Hct (42.0-52.0) % MCV (80.0-98.0) fL MCH (27.0-33.0) pg MCHC (31.0-36.0) g/dl RDW (11.0-16.0) % Plt Count (160-400) X10*3/uL MPV (9.4-12.4) fL Immature Gran % (Auto) (0.0-0.4) % Neut % (Auto) (45-73) % Lymph % (Auto) (20-40) % [place] % (Auto) (2-11) % Eos % (Auto) (0-4) % Baso % (Auto) (0-2) % Lymph # (Auto) (1.2-4.9) X10*3/uL [place] # (Auto) (0.1-1.2) X10*3/uL Eos # (Auto) (0.0-0.4) X10*3/uL Baso # (Auto) (0.0-0.2) X10*3/uL Abs Immat Gran (auto) (0.00-0.03) X10*3/uL Absolute Neuts (auto) (2.0-8.3) x10*3/uL Absolute Nucleated RBC (0.0-0.012) X10*3/uL Nucleated RBC % (auto) (0.0-0.2) /100WBC Sodium (135-145) mmol/L Potassium (3.3-5.1) mmol/L Chloride (96-108) mmol/L Carbon Dioxide (22-29) mmol/L Anion Gap (12-20) BUN (9-16) mg/dL Creatinine (0.5-1.4) mg/dL Estim Creat Clear Calc Estimated GFR POC Glucose 445 H* 345 H (60-115) mg/dL Random Glucose (60-115) mg/dL Calcium (8.4-10.2) mg/dL Urine Color YELLOW Urine Appearance CLEAR Urine pH 5.5 (5.0-8.0) Ur Specific [place] <= 1.005 (1.005-1.025) Urine Protein NEG (NEG-TRACE) MG/DL Urine Glucose (UA) >=1000 H (NEG) MG/DL Urine Ketones NEG (NEG) MG/DL Urine Blood NEG (NEG) Urine Nitrite NEG (NEG) Ur Leukocyte Esterase NEG (NEG) Urine RBC 0 (0) /HPF Urine WBC 5-9 H (0-4) /HPF Ur Squamous Epith Cells 1+ /LPF Urine Bacteria TRACE /LPF 02/18/22 Range/Units 03:50 WBC (4.8-10.8) X10*3/uL RBC (4.60-5.80) X10*6/uL Hgb (14.0-18.0) g/dl Hct (42.0-52.0) % MCV (80.0-98.0) fL MCH (27.0-33.0) pg MCHC (31.0-36.0) g/dl RDW (11.0-16.0) % Plt Count (160-400) X10*3/uL MPV (9.4-12.4) fL Immature Gran % (Auto) (0.0-0.4) % Neut % (Auto) (45-73) % Lymph % (Auto) (20-40) % [place] % (Auto) (2-11) % Eos % (Auto) (0-4) % Baso % (Auto) (0-2) % Lymph # (Auto) (1.2-4.9) X10*3/uL [place] # (Auto) (0.1-1.2) X10*3/uL Eos # (Auto) (0.0-0.4) X10*3/uL Baso # (Auto) (0.0-0.2) X10*3/uL Abs Immat Gran (auto) (0.00-0.03) X10*3/uL Absolute Neuts (auto) (2.0-8.3) x10*3/uL Absolute Nucleated RBC (0.0-0.012) X10*3/uL Nucleated RBC % (auto) (0.0-0.2) /100WBC Sodium (135-145) mmol/L Potassium (3.3-5.1) mmol/L Chloride (96-108) mmol/L Carbon Dioxide (22-29) mmol/L Anion Gap (12-20) BUN (9-16) mg/dL Creatinine (0.5-1.4) mg/dL Estim Creat Clear Calc Estimated GFR POC Glucose 257 H (60-115) mg/dL Random Glucose (60-115) mg/dL Calcium (8.4-10.2) mg/dL Urine Color Urine Appearance Urine pH (5.0-8.0) Ur Specific [place] (1.005-1.025) Urine Protein (NEG-TRACE) MG/DL Urine Glucose (UA) (NEG) MG/DL Urine Ketones (NEG) MG/DL Urine Blood (NEG) Urine Nitrite (NEG) Ur Leukocyte Esterase (NEG) Urine RBC (0) /HPF Urine WBC (0-4) /HPF Ur Squamous Epith Cells /LPF Urine Bacteria /LPF Discharge Plan Discharge Clinical Impression: Hyperglycemia due to type 2 diabetes mellitus Patient Disposition: Home, Self-Care Instructions: Diabetic Hyperglycemia (ED) Prescriptions: New metformin 500 mg tablet 500 mg PO BID Qty: 90 0RF No Action metformin 500 mg tablet 500 mg PO BID Qty: 90 0RF amoxicillin 500 mg tablet 500 mg PO BID Qty: 14 0RF
[2022-02-17] MEDS: 0.9 % Sodium Chloride 1,000 ML 999 ML IV (23:44)
[2022-02-17] MEDS: Insulin Regular, Human 100 UNIT/ML 3 ML VIAL 10 UNIT IVPUSH (23:44)
[2022-02-17] MEDS: metFORMIN HCl 1,000 MG TABLET 1000 MG PO (23:49)
--- NOTE | 2022-02-17 23:53 | PC.NURSE ---
Urine spec. collected and sent as ordered
[2022-02-18] VITALS: BP 116/65; PULSE 78; TEMP 36.6; O2SAT 97
[2022-02-18 00:09] LABS: Appearance Urine CLEAR; Color Urine YELLOW; Glucose Urine UA >=1000 MG/DL (NEG); Leukocyte Esterase Urine NEG (NEG); Nitrite Urine NEG (NEG); PH 5.5 (5.0-8.0); Specific Gravity - Urine <= 1.005 (1.005-1.025); Urine Blood NEG (NEG); Urine Ketones NEG (NEG); Urine Protein NEG (NEG-TRACE)
[2022-02-18 00:27] LABS: Bacteria Urine TRACE /LPF; RBC Urine 0 /HPF (0); Squamous Epithelial Cell Urine 1+ /LPF
[2022-02-18 01:13] LABS: Glucose, Whole Blood 445 mg/dL (60-115)
[2022-02-18] MEDS: Insulin Regular, Human 100 UNIT/ML 3 ML VIAL IVPUSH ×2 (01:39→02:47)
[2022-02-18 02:00] VITALS: BP 107/66; PULSE 66; O2SAT 98
[2022-02-18 02:35] LABS: Glucose, Whole Blood 345 mg/dL (60-115)
--- NOTE | 2022-02-18 02:36 | PC.NURSE ---
Pt.'s repeat POC = 345. MD Carolyne aware. New orders for 5U Insulin IVP and 1L NS
[2022-02-18] MEDS: 0.9 % Sodium Chloride 1,000 ML 999 ML IV (02:46)
--- NOTE | 2022-02-18 03:52 | PC.NURSE ---
Pt.'s repeat POC - 257. MD Carolyne notified and aware.
[2022-02-18 03:55] LABS: Glucose, Whole Blood 257 mg/dL (60-115)
[2022-02-18 04:15] VITALS: BP 113/69; PULSE 77; RESP 20; TEMP 36.6; O2SAT 96
[2022-02-18 13:05] LABS: Glucose, Whole Blood > 600 mg/dL (60-115)
== END 2022-02-18 04:17 | disposition home or self-care (01) ==
PROVIDERS: Emergency Provider Emergency Medicine
DX: E11.65 Type 2 diabetes mellitus with hyperglycemia (principal); Z79.84 Long term (current) use of oral hypoglycemic drugs
CPT/HCPCS: 36415; 80048; 81001; 81003; 82947; 85025; 96361; 96374; 96375; 96376; 99284

== ENCOUNTER 2022-06-30 07:03 | Emergency (ER) | payer MEDICAID, SELFPAY ==
[2022-06-30 07:06] VITALS: BP 123/57; PULSE 88; RESP 16; TEMP 36.7; O2SAT 99; BMI 32.8
[2022-06-30 07:37] LABS: Strep A Nucleic Acid Negative (Negative)
[2022-06-30 07:42] LABS: IDNOW Serial# BCCEAD1C; Influenza A Negative (Negative); Influenza B2 Negative (Negative)
[2022-06-30 07:42] LABS: COVID-19 Test Positive (Negative); IDNOW Serial# 16C4AD1C
--- NOTE | 2022-06-30 08:45 | ED_ITS ---
HPI - URI/Sore Throat General Chief Complaint: Upper Respiratory Symptoms Stated Complaint: quest strep throat Time Seen by Provider: 06/30/22 08:02 Source: patient Mode of arrival: ambulatory Limitations: no limitations History of Present Illness HPI Narrative: 26-year-old male past medical history of type 2 diabetes presents to the emergency department with a 3 day history sore throat, cough, and bilateral ear pain. He denies any difficulty swallowing, rhinorrhea, nasal congestion, or ear drainage. Denies any known sick contacts, shortness of breath, chest pain, fever, chills, headache, or vision changes. MD elicited complaint: cough and sore throat Onset (ago): day(s) (3) Consistency: constant Severity: moderate Pain scale (0-10): 4 Description of mucous: clear Able to tolerate fluids by mouth: Yes Exacerbating factors: exertion Relieving factors: nothing Associated symptoms: denies other symptoms Treatments prior to arrival: none Related Data Previous Rx's Medication Instructions Recorded metformin 500 mg tablet 500 mg PO BID #90 tabs 06/07/20 amoxicillin 500 mg tablet 500 mg PO BID #14 tabs 06/25/21 metformin 500 mg tablet 500 mg PO BID #90 tabs 02/18/22 Allergies Allergy/AdvReac Type Severity Reaction Status Date / Time peach [PEACH] Allergy Intermediate ITCHING Verified 06/06/20 20:59 avocado Allergy Anaphylaxis Verified 06/06/20 20:59 SEASONAL ALLERGIES Allergy Unknown RUNNY NOSE Uncoded 03/26/20 16:26 Review of Systems Review of Systems: In addition to documented HPI above, the additional ROS was obtained: Constitutional: No Weight loss, No Fever, No Chills ENT/Mouth: No Ear Pain, No Nasal Congestion, No Sinus Pain, No Hoarseness, No Rhinorrhea, No Swallowing Difficulty Cardiovascular: No Chest Pain, No SOB Respiratory: No Sputum, No Wheezing Gastrointestinal: No Nausea, No Vomiting, No Diarrhea, No Constipation, No Abdominal pain Genitourinary: No Dysuria, No Urinary Frequency, No Hematuria, No Urinary Incontinence/retention, No Urgency, No Flank Pain Musculoskeletal: No joint pain, No Myalgias, No Joint Swelling Skin: No Skin Lesions, No rash Neuro: No Weakness, No Numbness, No Paresthesias Yes all other systems are reviewed and are negative PMFSH Past Medical History Attestation statement: The following information was validated with the patient. Source: old records reviewed Medical History Pneumothorax Surgical History History of appendectomy Social History Social History Alcohol intake: current Alcohol intake frequency: holidays/special occasions only Patient Tobacco Use Status: Never used Tobacco Advance Directives: No Physical Exam Vital Signs: Vital Signs: Last Vital Signs Temp 98.1 F 06/30/22 07:06 Pulse 88 06/30/22 07:06 Resp 16 06/30/22 07:06 BP 123/57 L 06/30/22 07:06 Pulse Ox 99 06/30/22 07:06 O2 Del Method 06/30/22 07:06 BMI result Body Mass Index 32.8 Const: General: cooperative, alert and awake Nutritional Appearance: well nourished Orientation/consciousness: patient oriented x3 Limitations: no limitations HEENT: Head: Yes normal to inspection and Yes atraumatic Ears: hearing grossly normal bilaterally and TM's normal bilaterally General nose exam: Normal external nose present and Normal nares present Face and sinus: Yes normal facial exam, Yes sinuses nontender and Yes face symmetric Mouth: Normal oral and palatal mucosa present, tongue normal, oropharynx normal, no drooling, no muffled voice and no trismus Teeth and gingiva: dentition normal Throat: Yes posterior oropharynx normal and Yes uvula midline Eyes: General: appearance normal, both eyes and all related structures Visual Encinas: normal visual encinas by confrontation Alignment and Position: alignment normal Periorbital: periorbital findings normal Eyelids: Yes eyelids normal Conjunctivae: conjunctivae normal Sclerae: sclerae normal Corneas: corneas normal Pupils: Equal, round and reactive pupils present EOM: EOMs intact bilaterally Neck: Neck: Yes normal visual inspection, Yes full ROM and Yes no lymphadenopathy Chest: Chest palpation & inspection: normal inspection of the chest Resp: Effort & Inspection: normal respiratory effort, Actively coughing and not labored Auscultation: clear to auscultation bilaterally, no crackles, no rhonchi and no wheezes Cardio: Rate: regular rate Rhythm: regular rhythm Back/Spine/Pelvis: Cervical Spine: cervical ROM normal Thoracic/Lumbar Spine: thoraco-lumbar ROM normal Skin: General skin exam: no rashes or lesions noted Neuro: General: patient oriented x3, gait normal, tone normal and moves all extremities Cranial nerves: Yes Equal, round and reactive pupils present Extrem: General: Yes normal to inspection, Yes full ROM and Yes capillary refill normal Psych: Appearance: grossly normal Mental Status: mental status grossly normal Speech and movement: Normal speech and movement present Affect: normal affect Attitude: cooperative Thought process: Normal thought process present Thought content: Normal thought content present Medical Decision Making Medical Decision Making MDM Narrative: 26-year-old male past medical history of type 2 diabetes presents to the emergency department with a 3 day history sore throat, cough, and bilateral ear pain. Serology positive for COVID-19. Negative for flu and RSV. Physical exam unremarkable. No concern for pneumonia or bronchitis at this time based on HPI and PE. Patient is safe for discharge with symptom management with [id number] Tylenol, Motrin, and/or cough medications for management of fever and discomfort. Educated to use tea with honey, hard candy and lozenges for management of sore throat. HPI PE, diagnosis, and plan discussed with patient no answer questions at this time educated to return to the emergency department with shortness of breath, chest pain, headache vision changes, or any other emergent concerning symptoms. Recommended follow up primary care provider for further treatment and management. Lab Data Labs: Lab Results 06/30/22 06/30/22 06/30/22 Range/Units 07:12 07:13 07:13 COVID-19 (REID) Positive A (Negative) COVID-19 Clin Com See Note Influenza Type A (MARCELL) Negative (Negative) Influenza Type B (MARCELL) Negative (Negative) Influenza A & B Note See Note S. pyogenes GrpA MARCELL Negative (Negative) Discharge Plan Discharge Clinical Impression: COVID-19 Patient Disposition: Home, Self-Care Instructions: COVID-19 (Coronavirus Disease 2019) (ED) Prescriptions: No Action metformin 500 mg tablet 500 mg PO BID Qty: 90 0RF metformin 500 mg tablet 500 mg PO BID Qty: 90 0RF amoxicillin 500 mg tablet 500 mg PO BID Qty: 14 0RF Referrals: [facility] [place] [facility] [place] Group] [facility] [place] [facility] [place] Group] [facility] [place] [facility] [Provider Group] Print Language: Ethiopian
== END 2022-06-30 08:57 | disposition home or self-care (01) ==
PROVIDERS: Emergency Provider Emergency Medicine Emergency Medical Services
DX: U07.1 COVID-19 (principal); E11.9 Type 2 diabetes mellitus without complications; Z79.84 Long term (current) use of oral hypoglycemic drugs
CPT/HCPCS: 87502; 87635; 87651; 99282; 99283

== ENCOUNTER 2023-03-10 17:56 | Emergency (ER) | payer MEDICAID, SELFPAY ==
[2023-03-10 18:15] VITALS: BP 121/77; PULSE 89; RESP 16; TEMP 36.7; O2SAT 99; BMI 34.2
--- NOTE | 2023-03-10 18:17 | ED.GENADULT ---
HPI - General Adult General Chief complaint: General Medical Stated complaint: High blood sugar Time Seen by Provider: 03/10/23 21:54 Source: patient Mode of arrival: ambulatory Limitations: no limitations History of Present Illness HPI narrative: Patient comes to the emergency room complaining of high blood sugar, frequent urination and feeling thirsty. Mild abdominal pain. Patient states that he is aware that he is diabetic. However, he has never been on any diabetic medications. Patient has an appointment pending with a new PCP. Patient denies any chest pain or shortness of breath, no nausea vomiting. Related Data Previous Rx's Medication Instructions Recorded metformin 500 mg tablet 500 mg PO BID #90 tabs 06/07/20 amoxicillin 500 mg tablet 500 mg PO BID #14 tabs 06/25/21 metformin 500 mg tablet 500 mg PO BID #90 tabs 02/18/22 metformin 500 mg tablet 500 mg PO BID #60 tabs 03/10/23 Allergies Allergy/AdvReac Type Severity Reaction Status Date / Time peach [PEACH] Allergy Intermediate ITCHING Verified 06/06/20 20:59 avocado Allergy Anaphylaxis Verified 06/06/20 20:59 SEASONAL ALLERGIES Allergy Unknown RUNNY NOSE Uncoded 03/26/20 16:26 Review of Systems Review of Systems: Constitutional : No Weight loss, No Fever, No Chills, No Night Sweats, No Fatigue, No Malaise ENT/Mouth : No Hearing loss, No Ear Pain, No Nasal Congestion, No Sinus Pain, No Hoarseness, No sore throat, No Rhinorrhea, No Swallowing Difficulty Eyes: No Eye Pain, No Swelling, No Redness, No Foreign Body, No Discharge, No Vision Changes Cardiovascular : No Chest Pain, No SOB, No Dyspnea on Exertion, No Orthopnea, No Edema, No Palpitations Respiratory : No Cough, No Sputum, No Wheezing, No Smoke Exposure, No Dyspnea Gastrointestinal : No Nausea, No Vomiting, No Diarrhea, No Constipation, complaining of abdominal discomfort Genitourinary : no irregular bleeding, No Dysuria, No Urinary Frequency, No Hematuria, No Urinary Incontinence, No Urgency, No Flank Pain, No Urinary Flow Changes, No Hesitancy Musculoskeletal : No joint pain, No Myalgias, No Joint Swelling Skin : No Skin Lesions, No rash Neuro : No Weakness, No Numbness, No Paresthesias, No Loss of Consciousness, No Dizziness, No Headache Psych : No Anxiety/Panic, No Depression, No SI/HI/AH/VH, No Social Issues, Heme/Lymph: No Bruising, No Bleeding,No Lymphadenopathy Endocrine : Draining of polyuria and polydipsia and high blood sugars at home [facility] Past Medical History Medical History (Updated 03/10/23 @ 23:53 by Louise Herrera MD) Pneumothorax Type 2 diabetes mellitus Surgical History History of appendectomy Social History Social History Alcohol intake: current Alcohol intake frequency: does not drink Patient Tobacco Use Status: Never used Tobacco Smoked in Last 30 Days: No Use of substances other than those prescribed or required for medical reasons: No Advance Directives: No Advance Directives Information Provided: Yes Physical Exam ED Vital Signs: Vital Signs - 24 hr 03/10/23 18:15 03/10/23 21:34 Temperature 98.1 F 98.1 F Pulse Rate 89 70 Respiratory Rate 16 14 Blood Pressure 121/77 106/71 Pulse Oximetry 99 97 Oxygen Delivery Method Room Air Room Air BMI result Body Mass Index 34.2 Const Other: Appearance: Alert. Oriented X3. No acute distress. Eyes: Pupils equal, round and reactive to light. ENT: Pharynx normal. Trial or mucosa Neck: Normal inspection. Neck supple. No lymph nodes noted. No crepitus CVS: Normal heart rate and rhythm. Pulses normal. Normal S1 and S2 Respiratory: No respiratory distress. Breath sounds normal. No Wheezing. No rales Abdomen: Soft and nontender. No rigidity. No distention. Skin: Skin warm and dry. Normal skin color. Normal skin turgor. Extremities: No lower extremity edema. No Lacerations. No Rash Neuro: Oriented X 3. No motor deficit. No sensory deficit. Moving all extremities. No slurred speech. CN 2 through 12 grossly intact Psych: calm, cooperative, normal affect Course Course Course Narrative: This is an RME: Additional HPI, ROS, PE not included below will be deferred to primary provider. This is a [id number], with a history of diabetes, presenting to the ER with complaints of dry mouth and urinary frequency. He is not taking his medications for diabetes, last checked his sugars 3 days ago and was in the 200s. VSS. Plan: POC glucose found to be elevated at 546, added labs, betahydroxybuterate, VBG Medications Administered Discontinued Medications Generic Name Dose Route Start Last Admin Trade Name Erin PRN Reason Stop Dose Admin Sodium Chloride 1,000 mls @ 999 mls/hr 03/10/23 19:47 03/10/23 21:41 Ns IV 03/10/23 20:47 Infused .Q1H1M ONE Infusion Sodium Chloride 1,000 mls @ 999 mls/hr 03/10/23 21:59 03/10/23 22:35 Ns IVCONT 03/10/23 22:59 999 mls/hr .Q1H1M ONE Administration Insulin Human Regular 5 unit 03/10/23 21:59 03/10/23 22:31 Insulin Regular, Human 100 Unit/Ml 3 Ml Vial IVPUSH 03/10/23 22:00 5 unit ONCE ONE Administration Medical Decision Making Medical Decision Making [facility] Narrative: -my interpretation of labs: Normal white blood cell count, blood glucose 539, beta hydroxybutyrate slightly elevated 0.68. Anion gap is closed -patient receiving IV fluids and IV insulin. -discussed with the patient that when he gets discharged, we will start him on metformin. Patient agreeable with plan. -patient will be discharged with a prescription of metformin. Discussed the side effects especially GI with the patient, patient agreeable to start medication. Also, patient giving information for walk-in clinics where he can be seen until he gets his primary care physician's appointment Differential Diagnosis Differential Diagnoses: The differential diagnosis associated with the presentation includes (Hyperglycemia, type 2 diabetes, type 1 diabetes) Admission/Observation Consideration of admission/observation: Escalation of care including admission/observation considered (Patient came in with a high blood sugar cover patient is not on any medications, admission was considered) Lab Data [facility] Lab Attestation statement: I reviewed the patient's lab results. 03/10/23 18:39 03/10/23 18:39 Labs: Lab Results 03/10/23 03/10/23 03/10/23 Range/Units 18:29 18:39 18:39 WBC 4.9 (4.8-10.8) X10*3/uL RBC 5.63 (4.60-5.80) X10*6/uL Hgb 16.0 (14.0-18.0) g/dl Hct 45.0 (42.0-52.0) % MCV 79.9 L (80.0-98.0) fL MCH 28.4 (27.0-33.0) pg MCHC 35.6 (31.0-36.0) g/dl RDW 12.2 (11.0-16.0) % Plt Count 168 (160-400) X10*3/uL MPV 11.6 (9.4-12.4) fL Immature Gran % (Auto) 0.2 (0.0-0.4) % Neut % (Auto) 58.2 (45-73) % Lymph % (Auto) 31.3 (20-40) % Milam % (Auto) 6.9 (2-11) % Eos % (Auto) 2.8 (0-4) % Baso % (Auto) 0.6 (0-2) % Lymph # (Auto) 1.5 (1.2-4.9) X10*3/uL Milam # (Auto) 0.3 (0.1-1.2) X10*3/uL Eos # (Auto) 0.1 (0.0-0.4) X10*3/uL Baso # (Auto) 0.0 (0.0-0.2) X10*3/uL Abs Immat Gran (auto) 0.01 (0.00-0.03) X10*3/uL Absolute Neuts (auto) 2.9 (2.0-8.3) x10*3/uL Absolute Nucleated RBC 0.000 (0.0-0.012) X10*3/uL Nucleated RBC % (auto) 0.0 (0.0-0.2) /100WBC VBG pH (7.32-7.43) VBG pCO2 mmHg VBG pO2 mmHg VBG HCO3 (22-26) mmol/L VBG O2 Saturation % VBG Base Excess mmol/L Sodium 133 L (135-145) mmol/L Potassium 3.9 (3.3-5.1) mmol/L Chloride 98 (96-108) mmol/L Carbon Dioxide 21 L (22-29) mmol/L Anion Gap 18 (12-20) BUN 15 (9-16) mg/dL Creatinine 1.10 (0.5-1.4) mg/dL Estim Creat Clear Calc 114.7 Estimated GFR > 60 POC Glucose 546 H* (60-115) mg/dL Random Glucose 539 H* (60-115) mg/dL Calcium 10.0 D (8.4-10.2) mg/dL Total Bilirubin 0.9 (0.0-1.0) mg/dL Direct Bilirubin 0.2 (0.0-0.5) mg/dL AST 14 (5-37) U/L ALT 21 (0-40) U/L Alkaline Phosphatase 88 (39-117) U/L Total Protein 7.4 (6.5-8.0) g/dL Albumin 4.1 (3.5-5.0) g/dL Beta-Hydroxybutyrate 0.68 H (0.02-0.27) mmol/L Urine Color Urine Appearance Urine pH (5.0-9.0) Ur Specific Shepherd (1.005-1.025) Urine Protein (Neg-Trace) mg/dL Urine Glucose (UA) (Negative) mg/dL Urine Ketones (Negative) mg/dL Urine Blood (Negative) Urine Nitrite (Negative) Ur Leukocyte Esterase (Negative) Urine RBC (0-2) /HPF Urine WBC (0-5) /HPF Ur Squamous Epith Cells (0-2) /HPF Urine Bacteria (None Seen) Hyaline Casts (0-2) /LPF 03/10/23 03/10/23 03/10/23 Range/Units 18:46 19:28 21:42 WBC (4.8-10.8) X10*3/uL RBC (4.60-5.80) X10*6/uL Hgb (14.0-18.0) g/dl Hct (42.0-52.0) % MCV (80.0-98.0) fL MCH (27.0-33.0) pg MCHC (31.0-36.0) g/dl RDW (11.0-16.0) % Plt Count (160-400) X10*3/uL MPV (9.4-12.4) fL Immature Gran % (Auto) (0.0-0.4) % Neut % (Auto) (45-73) % Lymph % (Auto) (20-40) % Milam % (Auto) (2-11) % Eos % (Auto) (0-4) % Baso % (Auto) (0-2) % Lymph # (Auto) (1.2-4.9) X10*3/uL Milam # (Auto) (0.1-1.2) X10*3/uL Eos # (Auto) (0.0-0.4) X10*3/uL Baso # (Auto) (0.0-0.2) X10*3/uL Abs Immat Gran (auto) (0.00-0.03) X10*3/uL Absolute Neuts (auto) (2.0-8.3) x10*3/uL Absolute Nucleated RBC (0.0-0.012) X10*3/uL Nucleated RBC % (auto) (0.0-0.2) /100WBC VBG pH 7.42 (7.32-7.43) VBG pCO2 41 mmHg VBG pO2 90 mmHg VBG HCO3 26 (22-26) mmol/L VBG O2 Saturation 99.0 % VBG Base Excess 2.2 mmol/L Sodium (135-145) mmol/L Potassium (3.3-5.1) mmol/L Chloride (96-108) mmol/L Carbon Dioxide (22-29) mmol/L Anion Gap (12-20) BUN (9-16) mg/dL Creatinine (0.5-1.4) mg/dL Estim Creat Clear Calc Estimated GFR POC Glucose 422 H* (60-115) mg/dL Random Glucose (60-115) mg/dL Calcium (8.4-10.2) mg/dL Total Bilirubin (0.0-1.0) mg/dL Direct Bilirubin (0.0-0.5) mg/dL AST (5-37) U/L ALT (0-40) U/L Alkaline Phosphatase (39-117) U/L Total Protein (6.5-8.0) g/dL Albumin (3.5-5.0) g/dL Beta-Hydroxybutyrate (0.02-0.27) mmol/L Urine Color Yellow Urine Appearance Clear Urine pH 5.5 (5.0-9.0) Ur Specific Shepherd >= 1.030 H (1.005-1.025) Urine Protein Negative (Neg-Trace) mg/dL Urine Glucose (UA) >=1000 H (Negative) mg/dL Urine Ketones 15 (Negative) mg/dL Urine Blood Negative (Negative) Urine Nitrite Negative (Negative) Ur Leukocyte Esterase Negative (Negative) Urine RBC 0-2 (0-2) /HPF Urine WBC 6-10 H (0-5) /HPF Ur Squamous Epith Cells 0-2 (0-2) /HPF Urine Bacteria None Seen (None Seen) Hyaline Casts 3-5 (0-2) /LPF 03/10/23 Range/Units 23:29 WBC (4.8-10.8) X10*3/uL RBC (4.60-5.80) X10*6/uL Hgb (14.0-18.0) g/dl Hct (42.0-52.0) % MCV (80.0-98.0) fL MCH (27.0-33.0) pg MCHC (31.0-36.0) g/dl RDW (11.0-16.0) % Plt Count (160-400) X10*3/uL MPV (9.4-12.4) fL Immature Gran % (Auto) (0.0-0.4) % Neut % (Auto) (45-73) % Lymph % (Auto) (20-40) % Milam % (Auto) (2-11) % Eos % (Auto) (0-4) % Baso % (Auto) (0-2) % Lymph # (Auto) (1.2-4.9) X10*3/uL Milam # (Auto) (0.1-1.2) X10*3/uL Eos # (Auto) (0.0-0.4) X10*3/uL Baso # (Auto) (0.0-0.2) X10*3/uL Abs Immat Gran (auto) (0.00-0.03) X10*3/uL Absolute Neuts (auto) (2.0-8.3) x10*3/uL Absolute Nucleated RBC (0.0-0.012) X10*3/uL Nucleated RBC % (auto) (0.0-0.2) /100WBC VBG pH (7.32-7.43) VBG pCO2 mmHg VBG pO2 mmHg VBG HCO3 (22-26) mmol/L VBG O2 Saturation % VBG Base Excess mmol/L Sodium (135-145) mmol/L Potassium (3.3-5.1) mmol/L Chloride (96-108) mmol/L Carbon Dioxide (22-29) mmol/L Anion Gap (12-20) BUN (9-16) mg/dL Creatinine (0.5-1.4) mg/dL Estim Creat Clear Calc Estimated GFR POC Glucose 300 H (60-115) mg/dL Random Glucose (60-115) mg/dL Calcium (8.4-10.2) mg/dL Total Bilirubin (0.0-1.0) mg/dL Direct Bilirubin (0.0-0.5) mg/dL AST (5-37) U/L ALT (0-40) U/L Alkaline Phosphatase (39-117) U/L Total Protein (6.5-8.0) g/dL Albumin (3.5-5.0) g/dL Beta-Hydroxybutyrate (0.02-0.27) mmol/L Urine Color Urine Appearance Urine pH (5.0-9.0) Ur Specific Shepherd (1.005-1.025) Urine Protein (Neg-Trace) mg/dL Urine Glucose (UA) (Negative) mg/dL Urine Ketones (Negative) mg/dL Urine Blood (Negative) Urine Nitrite (Negative) Ur Leukocyte Esterase (Negative) Urine RBC (0-2) /HPF Urine WBC (0-5) /HPF Ur Squamous Epith Cells (0-2) /HPF Urine Bacteria (None Seen) Hyaline Casts (0-2) /LPF Critical Care Time Critical Care Time Critical Care Time: Yes Total Critical Care Time: 60 Attestation: I have personally provided critical care time. Time includes review of lab data, radiology results, discussion with consultants, and monitoring for potential decompensation. Intervention performed as documented. Discharge Plan Discharge Clinical Impression: Acute hyperglycemia, Type 2 diabetes mellitus Patient Disposition: Home, Self-Care Instructions: Diabetic Hyperglycemia (ED) Additional Instructions: Please follow-up with your primary care physician tomorrow. If you have any worsening or new symptoms, please return to the emergency room or call 911 Prescriptions: New metformin 500 mg tablet 500 mg PO BID Qty: 60 2RF No Action metformin 500 mg tablet 500 mg PO BID Qty: 90 0RF metformin 500 mg tablet 500 mg PO BID Qty: 90 0RF amoxicillin 500 mg tablet 500 mg PO BID Qty: 14 0RF
[2023-03-10 18:33] LABS: Glucose, Whole Blood 546 mg/dL (60-115)
[2023-03-10 18:44] LABS: MANUAL DIFF FLAG NO
[2023-03-10 18:56] LABS: Basophils Percent Auto 0.6 % (0-2); Eosinophils Absolute Auto 0.1 X10*3/uL (0.0-0.4); Eosinophils Percent Auto 2.8 % (0-4); Imm Gran Abs Auto 0.01 X10*3/uL (0.00-0.03); Imm Gran Pct Auto 0.2 % (0.0-0.4); Lymphocytes Absolute Auto 1.5 X10*3/uL (1.2-4.9); Lymphocytes Percent Auto 31.3 % (20-40); Mean Corpuscular HGB Conc 35.6 g/dl (31.0-36.0); Mean Corpuscular Hemoglobin 28.4 pg (27.0-33.0); Mean Corpuscular Volume 79.9 fL (80.0-98.0); Mean Platelet Volume 11.6 fL (9.4-12.4); Monocytes Absolute Auto 0.3 X10*3/uL (0.1-1.2); Monocytes Percent Auto 6.9 % (2-11); Neutrophils Absolute Auto 2.9 x10*3/uL (2.0-8.3); Neutrophils Percent Auto 58.2 % (45-73); Platelet Count 168 X10*3/uL (160-400); Red Blood Count 5.63 X10*6/uL (4.60-5.80); Red Cell Distribution Width 12.2 % (11.0-16.0); White Blood Count 4.9 X10*3/uL (4.8-10.8)
[2023-03-10 19:07] LABS: VBG Base Excess 2.2 mmol/L; VBG HCO3 26 mmol/L (22-26); VBG pCO2 41 mmHg; VBG pH 7.42 (7.32-7.43); VBG pO2 90 mmHg
[2023-03-10 19:16] LABS: Beta-Hydroxybutyrate 0.68 mmol/L (0.02-0.27)
[2023-03-10 19:23] LABS: Alanine Aminotransferase 21 U/L (0-40); Albumin Level 4.1 g/dL (3.5-5.0); Alkaline Phosphatase 88 U/L (39-117); Anion Gap 18 (12-20); Aspartate Amino Transferase 14 U/L (5-37); Bilirubin Direct 0.2 mg/dL (0.0-0.5); Bilirubin Total 0.9 mg/dL (0.0-1.0); Blood Urea Nitrogen 15 mg/dL (9-16); Carbon Dioxide 21 mmol/L (22-29); Chloride 98 mmol/L (96-108); Creatinine Clr Calc Pharmacy 114.7; Estimated Glomerular Filt Rate > 60; Glucose Random 539 mg/dL (60-115); Potassium 3.9 mmol/L (3.3-5.1); Sodium 133 mmol/L (135-145); Total Protein 7.4 g/dL (6.5-8.0)
[2023-03-10 19:43] LABS: Appearance Urine Clear; Color Urine Yellow; Glucose Urine UA >=1000 mg/dL (Negative); Leukocyte Esterase Urine Negative (Negative); Nitrite Urine Negative (Negative); PH 5.5 (5.0-9.0); Specific Gravity - Urine >= 1.030 (1.005-1.025); UMIC TRIGGER UACC YES; Urine Blood Negative (Negative); Urine Ketones 15 mg/dL (Negative); Urine Protein Negative (Neg-Trace)
[2023-03-10 19:48] LABS: Bacteria Urine None Seen (None Seen); RBC Urine 0-2 /HPF (0-2); Squamous Epithelial Cell Urine 0-2 /HPF (0-2); UACC Culture Trigger YES
[2023-03-10] MEDS: 0.9 % Sodium Chloride 1,000 ML 999 ML IV (20:23)
[2023-03-10 21:02] LABS: Venous Blood Gas Refer to POC result
--- NOTE | 2023-03-10 21:03 | PC.NURSE ---
Pt aox4 resting at the bedside. Reports increased blood sugar. Diagnosed with diabetes several years ago and never received any treatment. Denies pain at this time. C/O dry mouth and increased urination. 20G IV line placed on the left FA . Pending physician eval.
[2023-03-10 21:34] VITALS: BP 106/71; PULSE 70; RESP 14; TEMP 36.7; O2SAT 97
[2023-03-10 21:47] LABS: Glucose, Whole Blood 422 mg/dL (60-115)
[2023-03-10] MEDS: Insulin Regular, Human 100 UNIT/ML 3 ML VIAL IVPUSH (22:31)
[2023-03-10] MEDS: 0.9 % Sodium Chloride 1,000 ML 999 ML IVCONT (22:35)
--- NOTE | 2023-03-10 22:40 | PC.NURSE ---
Pt medicated as ordered. Tolerated well. Pt aware of plan of care.
[2023-03-10 23:34] LABS: Glucose, Whole Blood 300 mg/dL (60-115)
--- NOTE | 2023-03-10 23:35 | PC.NURSE ---
Pt aox4 resting at the bedside. Food and water provided as requested by patient. Pending disposition.
== END 2023-03-11 00:28 | disposition home or self-care (01) ==
PROVIDERS: Physician Assistant Medical; Emergency Provider Emergency Medicine
DX: E11.65 Type 2 diabetes mellitus with hyperglycemia (principal); R35.0 Frequency of micturition; R10.9 Unspecified abdominal pain; Z79.899 Other long term (current) drug therapy
CPT/HCPCS: 36415; 80048; 80076; 81001; 82010; 82803; 82947; 85025; 87086; 96361; 96374; 99285

== ENCOUNTER 2023-08-31 13:19 | Emergency (ER) | payer MEDICAID, SELFPAY ==
[2023-08-31 13:28] VITALS: BP 121/83; PULSE 96; RESP 16; TEMP 37.1; O2SAT 97; BMI 33.0
--- NOTE | 2023-08-31 13:36 | ED.GENADULT ---
HPI - General Adult General Chief complaint: General Medical Stated complaint: High blood sugar Time Seen by Provider: 08/31/23 16:50 Source: patient and RN notes reviewed Mode of arrival: ambulatory Limitations: no limitations History of Present Illness HPI narrative: This is a 28-year-old male, with a history of diabetes noncompliant on medication, presenting to the emergency department for evaluation of hyperglycemia. Patient states that he has been noncompliant on his diabetic medication, metformin, for the last month and a half as he ran out. It appears that patient was diagnosed with diabetes multiple months ago and was discharged on metformin 500 mg twice a day. He states that he was taking this medication but notes that he did not have any improvement with his blood sugars. He states that today he felt as though his sugars were high as he had increased thirst, and felt fatigued. He denies any recent illness, denies fevers, chills, chest pain, shortness on breath, nausea, vomiting, diarrhea, or abdominal pain. He does not have a primary care physician at this time. Denies urinary symptoms. No other complaints or concerns at this time. MD complaint: Hyperglycemia Onset (ago): day(s) Radiation: non-radiation Quality: aching Pain Consistency: constant Relieving factors: none Exacerbating factors: none Associated symptoms: denies other symptoms Treatments prior to arrival: none Related Data Previous Rx's Medication Instructions Recorded metformin 500 mg tablet 500 mg PO BID #90 tabs 06/07/20 amoxicillin 500 mg tablet 500 mg PO BID #14 tabs 06/25/21 metformin 500 mg tablet 500 mg PO BID #90 tabs 02/18/22 metformin 500 mg tablet 500 mg PO BID #60 tabs 03/10/23 blood-glucose meter #1 ea 08/31/23 metformin 500 mg tablet 500 mg PO BID 60 days #120 tabs 08/31/23 Allergies Allergy/AdvReac Type Severity Reaction Status Date / Time peach [PEACH] Allergy Intermediate ITCHING Verified 08/31/23 13:27 avocado Allergy Anaphylaxis Verified 08/31/23 13:27 SEASONAL ALLERGIES Allergy Unknown RUNNY NOSE Uncoded 08/31/23 13:27 Review of Systems Review of Systems: Yes all other systems are reviewed and are negative Constitutional: Constitutional: Reports as per [facility] Past Medical History Attestation statement: The following information was validated with the patient. Medical History Type 2 diabetes mellitus Pneumothorax Surgical History History of appendectomy Social History Social History Alcohol intake: current Alcohol intake frequency: does not drink Patient Tobacco Use Status: Never used Tobacco Advance Directives: No Advance Directives Information Provided: No Physical Exam ED Vital Signs: Vital Signs - 24 hr 08/31/23 13:28 Temperature 98.7 F Pulse Rate 96 Respiratory Rate 16 Blood Pressure 121/83 Pulse Oximetry 97 Oxygen Delivery Method Room Air BMI result Body Mass Index 33.0 Const General: cooperative, comfortable and no acute distress Orientation/consciousness: patient oriented x3 Limitations: no limitations HENMT Head: Yes normal to inspection, Yes normocephalic and Yes atraumatic Ears: hearing grossly normal bilaterally General nose exam: Normal external nose present Face and sinus: Yes normal facial exam Mouth: Normal oral and palatal mucosa present, oropharynx normal and moist mucous membranes Throat: Yes posterior oropharynx normal Eyes General: appearance normal, both eyes and all related structures Eyelids: Yes eyelids normal Conjunctivae: conjunctivae normal Sclerae: sclerae normal Pupils: Equal, round and reactive pupils present EOM: EOMs intact bilaterally Neck Neck: Yes normal visual inspection, Yes full ROM and Yes no lymphadenopathy Lymphatic: no lymphadenopathy noted Chest Chest palpation & inspection: normal inspection of the chest Resp Effort & Inspection: normal respiratory effort and able to speak in complete sentences Auscultation: clear to auscultation bilaterally, no crackles, no rales, no rhonchi and no wheezes Cardio Rate: regular rate Rhythm: regular rhythm Heart sounds: S1 normal heart sound present and S2 normal heart sound present GI Inspection: Yes normal to inspection Skin General skin exam: no rashes or lesions noted Trauma: no lacerations or abrasions Wounds: no wounds Neuro General: patient oriented x3 and moves all extremities Cranial nerves: Yes Equal, round and reactive pupils present Extrem General: Yes normal to inspection Right upper extremity: normal to inspection Left upper extremity: normal to inspection Right lower extremity: normal to inspection Left lower extremity: normal to inspection Course Course Course Narrative: This is a rapid medical exam. Deferred additional HPI, ROS, PE to primary provider. 28yo male with known history of DM here with concern for high blood sugar. Stopped taking his medication a few months ago, hasnt been checking blood sugars because he lost his glucometer, no PCP. Will check POC, labs VSS Medical Decision Making Medical Decision Making [facility] Narrative: This is a 28-year-old male, with a history of diabetes, presenting to the emergency department complaints of hyperglycemia. On arrival, vital signs within normal limits. POC was obtained revealing a glucose level 420. Labs were obtained, CBC without any evidence of leukocytosis, chemistry was still pending upon my initial assessment of patient. Patient has been noncompliant on his metformin, and does not have a primary care physician at this time. Point care during my assessment was 323. Beta hydroxybutyrate 0.21, patient is not acidotic, VBG revealing a pH of 7.4,HCO3 30. He is feeling well, no evidence of infection, no chest pain or shortness of breath. Vital signs are stable. I discussed this case with my attending physician, Dr. Santiago. Given patient is not in DKA, and sugars have been down trending since his initial arrival, patient can be discharged restarting metformin twice a day, and stressed the importance of following up with the primary care physician. Eunice from case management saw patient and provided him with resources to follow-up. He understands and agrees with this plan. Given return precautions. Patient stable for discharge Differential Diagnosis Differential Diagnoses: The differential diagnosis associated with the presentation includes Diabetes, hyperglycemia, HHS, DKA Admission/Observation Consideration of admission/observation: Escalation of care including admission/observation considered Lab Data [facility] Lab Attestation statement: I reviewed the patient's lab results. No leukocytosis, stable H&H, chemistry revealing a carbon dioxide level of 30, creatinine 1.1 which is around his baseline, glucose level 420 initially, 323 upon my assessment. Patient is not acidotic pH of 7.4, bicarb 30, otherwise normal VBG. 08/31/23 15:18 08/31/23 15:18 Labs: Lab Results 08/31/23 08/31/23 08/31/23 Range/Units 13:40 15:18 15:21 WBC 6.2 (4.8-10.8) X10*3/uL RBC 6.43 H (4.60-5.80) X10*6/uL Hgb 17.8 (14.0-18.0) g/dl Hct 50.5 (42.0-52.0) % MCV 78.5 L (80.0-98.0) fL MCH 27.7 (27.0-33.0) pg MCHC 35.2 (31.0-36.0) g/dl RDW 11.9 (11.0-16.0) % Plt Count 195 (160-400) X10*3/uL MPV 11.1 (9.4-12.4) fL Immature Gran % (Auto) 0.2 (0.0-0.4) % Neut % (Auto) 64.8 (45-73) % Lymph % (Auto) 27.9 (20-40) % Cameron % (Auto) 5.5 (2-11) % Eos % (Auto) 1.3 (0-4) % Baso % (Auto) 0.3 (0-2) % Lymph # (Auto) 1.7 (1.2-4.9) X10*3/uL Cameron # (Auto) 0.3 (0.1-1.2) X10*3/uL Eos # (Auto) 0.1 (0.0-0.4) X10*3/uL Baso # (Auto) 0.0 (0.0-0.2) X10*3/uL Abs Immat Gran (auto) 0.01 (0.00-0.03) X10*3/uL Absolute Neuts (auto) 4.0 (2.0-8.3) x10*3/uL Absolute Nucleated RBC 0.000 (0.0-0.012) X10*3/uL Nucleated RBC % (auto) 0.0 (0.0-0.2) /100WBC VBG pH 7.40 (7.32-7.43) VBG pCO2 48 mmHg VBG pO2 29 mmHg VBG HCO3 30 H (22-26) mmol/L VBG O2 Saturation 45.0 % VBG Base Excess 4.6 mmol/L Sodium 137 (135-145) mmol/L Potassium 4.5 (3.3-5.1) mmol/L Chloride 98 (96-108) mmol/L Carbon Dioxide 30 H (22-29) mmol/L Anion Gap 14 (12-20) BUN 9 (9-16) mg/dL Creatinine 1.12 (0.5-1.4) mg/dL Estim Creat Clear Calc 109.6 Estimated GFR > 60 POC Glucose 420 H* (60-115) mg/dL Random Glucose 384 H* (60-115) mg/dL Calcium 10.1 (8.4-10.2) mg/dL Total Bilirubin 0.8 (0.0-1.0) mg/dL Direct Bilirubin 0.3 (0.0-0.5) mg/dL AST 12 (5-37) U/L ALT 15 (0-40) U/L Alkaline Phosphatase 79 (39-117) U/L Total Protein 8.1 H (6.5-8.0) g/dL Albumin 4.4 (3.5-5.0) g/dL Beta-Hydroxybutyrate 0.21 (0.02-0.27) mmol/L 08/31/23 08/31/23 Range/Units 15:51 17:35 WBC (4.8-10.8) X10*3/uL RBC (4.60-5.80) X10*6/uL Hgb (14.0-18.0) g/dl Hct (42.0-52.0) % MCV (80.0-98.0) fL MCH (27.0-33.0) pg MCHC (31.0-36.0) g/dl RDW (11.0-16.0) % Plt Count (160-400) X10*3/uL MPV (9.4-12.4) fL Immature Gran % (Auto) (0.0-0.4) % Neut % (Auto) (45-73) % Lymph % (Auto) (20-40) % Cameron % (Auto) (2-11) % Eos % (Auto) (0-4) % Baso % (Auto) (0-2) % Lymph # (Auto) (1.2-4.9) X10*3/uL Cameron # (Auto) (0.1-1.2) X10*3/uL Eos # (Auto) (0.0-0.4) X10*3/uL Baso # (Auto) (0.0-0.2) X10*3/uL Abs Immat Gran (auto) (0.00-0.03) X10*3/uL Absolute Neuts (auto) (2.0-8.3) x10*3/uL Absolute Nucleated RBC (0.0-0.012) X10*3/uL Nucleated RBC % (auto) (0.0-0.2) /100WBC VBG pH (7.32-7.43) VBG pCO2 mmHg VBG pO2 mmHg VBG HCO3 (22-26) mmol/L VBG O2 Saturation % VBG Base Excess mmol/L Sodium (135-145) mmol/L Potassium (3.3-5.1) mmol/L Chloride (96-108) mmol/L Carbon Dioxide (22-29) mmol/L Anion Gap (12-20) BUN (9-16) mg/dL Creatinine (0.5-1.4) mg/dL Estim Creat Clear Calc Estimated GFR POC Glucose 346 H 323 H (60-115) mg/dL Random Glucose (60-115) mg/dL Calcium (8.4-10.2) mg/dL Total Bilirubin (0.0-1.0) mg/dL Direct Bilirubin (0.0-0.5) mg/dL AST (5-37) U/L ALT (0-40) U/L Alkaline Phosphatase (39-117) U/L Total Protein (6.5-8.0) g/dL Albumin (3.5-5.0) g/dL Beta-Hydroxybutyrate (0.02-0.27) mmol/L Discharge Plan Discharge Clinical Impression: Diabetes, Acute hyperglycemia Patient Disposition: Home, Self-Care Instructions: Type 2 Diabetes in Adults: New Diagnosis (ED), Diabetic Hyperglycemia (ED), Diabetes and Your Skin (ED), Diabetes and Your Mouth (ED), Diabetes and Nutrition (ED), Diabetes and Exercise (ED), How to Check your Blood Sugar (ED) Additional Instructions: You were seen in the emergency department due to high blood sugar. You need to take metformin as this is very important for your diabetes. I gave you 2 month supply, please follow-up with the primary care physician as they can better manage your blood glucose level. Stick to sugar free drinks, and see attached information about management of your diabetes. If any new or worsening symptoms occur including but not limited to chest pain, shortness of breath, abdominal pain, please return for re-evaluation Prescriptions: New metformin 500 mg tablet 500 mg PO BID 60 Days Qty: 120 0RF (DME) blood-glucose meter Kit See Rx Instructions .Route Qty: 1 0RF Rx Instructions: As directed No Action metformin 500 mg tablet 500 mg PO BID Qty: 90 0RF metformin 500 mg tablet 500 mg PO BID Qty: 90 0RF amoxicillin 500 mg tablet 500 mg PO BID Qty: 14 0RF metformin 500 mg tablet 500 mg PO BID Qty: 60 2RF Stand Alone Forms: Work/School Release Interventions: ED Discharge Assessment Last Done: 08/31/23 18:06 Discharge Date/Time: 08/31/23 18:08
[2023-08-31 15:25] LABS: MANUAL DIFF FLAG NO
[2023-08-31 15:27] LABS: Venous Blood Gas Refer to POC result
[2023-08-31 15:28] LABS: VBG Base Excess 4.6 mmol/L; VBG HCO3 30 mmol/L (22-26); VBG pCO2 48 mmHg; VBG pO2 29 mmHg
[2023-08-31 15:34] LABS: Basophils Percent Auto 0.3 % (0-2); Eosinophils Absolute Auto 0.1 X10*3/uL (0.0-0.4); Eosinophils Percent Auto 1.3 % (0-4); Hematocrit 50.5 % (42.0-52.0); Hemoglobin 17.8 g/dl (14.0-18.0); Imm Gran Abs Auto 0.01 X10*3/uL (0.00-0.03); Imm Gran Pct Auto 0.2 % (0.0-0.4); Lymphocytes Absolute Auto 1.7 X10*3/uL (1.2-4.9); Lymphocytes Percent Auto 27.9 % (20-40); Mean Corpuscular HGB Conc 35.2 g/dl (31.0-36.0); Mean Corpuscular Hemoglobin 27.7 pg (27.0-33.0); Mean Corpuscular Volume 78.5 fL (80.0-98.0); Mean Platelet Volume 11.1 fL (9.4-12.4); Monocytes Absolute Auto 0.3 X10*3/uL (0.1-1.2); Monocytes Percent Auto 5.5 % (2-11); Neutrophils Percent Auto 64.8 % (45-73); Platelet Count 195 X10*3/uL (160-400); Red Blood Count 6.43 X10*6/uL (4.60-5.80); Red Cell Distribution Width 11.9 % (11.0-16.0); White Blood Count 6.2 X10*3/uL (4.8-10.8)
[2023-08-31 15:55] LABS: Glucose, Whole Blood 346 mg/dL (60-115)
[2023-08-31 15:56] LABS: Glucose, Whole Blood 420 mg/dL (60-115)
[2023-08-31 17:35] LABS: Beta-Hydroxybutyrate 0.21 mmol/L (0.02-0.27)
[2023-08-31 17:39] LABS: Glucose, Whole Blood 323 mg/dL (60-115)
[2023-08-31 17:44] LABS: Alanine Aminotransferase 15 U/L (0-40); Albumin Level 4.4 g/dL (3.5-5.0); Alkaline Phosphatase 79 U/L (39-117); Anion Gap 14 (12-20); Aspartate Amino Transferase 12 U/L (5-37); Bilirubin Direct 0.3 mg/dL (0.0-0.5); Bilirubin Total 0.8 mg/dL (0.0-1.0); Blood Urea Nitrogen 9 mg/dL (9-16); Calcium 10.1 mg/dL (8.4-10.2); Carbon Dioxide 30 mmol/L (22-29); Chloride 98 mmol/L (96-108); Creatinine Clr Calc Pharmacy 109.6; Estimated Glomerular Filt Rate > 60; Glucose Random 384 mg/dL (60-115); Potassium 4.5 mmol/L (3.3-5.1); Sodium 137 mmol/L (135-145); Total Protein 8.1 g/dL (6.5-8.0)
--- NOTE | 2023-08-31 18:04 | MHC.CM.ED ---
CM met with patient at the request of Lissett PHILLIPS. Pt is a diabetic. Is non-compliant with his metformin and does not have a PCP. Pt states the metformin does not work, even if he doesn't eat. CM explained that there are other medications for diabetes, but he will need follow up with a PCP. [place] [facility], [facility] and [facility]. Again stressed importance of calling a PCP and taking the first available new patient appointment. Explained that it may take 1-2 months. Pt has [facility]. Pt states he has free medications and does not need a Good Rx card. CM told the patient to be sure to use his correct Medicaid card when he calls, as he tells CM he has 2 cards and one does not work. Patient asking for discharge and a work note. Lissett vigil.
== END 2023-08-31 18:08 | disposition home or self-care (01) ==
PROVIDERS: Nurse Practitioner Family; Emergency Provider Emergency Medicine
DX: E11.65 Type 2 diabetes mellitus with hyperglycemia (principal); Z91.148 Patient's other noncompliance with medication regimen for other reason; Z79.899 Other long term (current) drug therapy
CPT/HCPCS: 36415; 80048; 80076; 82010; 82803; 82947; 85025; 99282; 99283

== ENCOUNTER 2024-01-28 08:03 | Emergency (ER) | payer SELFPAY ==
[2024-01-28 08:15] VITALS: BP 119/81; PULSE 87; RESP 18; TEMP 36.6; O2SAT 99; BMI 29.5
[2024-01-28 08:22] LABS: Glucose, Whole Blood 193 mg/dL (60-115)
--- NOTE | 2024-01-28 08:22 | ED_ITS ---
HPI - General Adult General Chief complaint: General Medical Stated complaint: high sugar levels Time Seen by Provider: 01/28/24 08:12 Source: patient Limitations: no limitations History of Present Illness HPI narrative: This is 28 years old patient with history of type 2 diabetes presented to emergency department complaining of dizziness,weakness. malaise he thinks his blood sugar is elevated. Did not check his blood sugar home. Onset (ago): hour(s) (3) Radiation: non-radiation Severity: moderate Pain Consistency: constant Related Data Previous Rx's ?Medication ?Instructions ?Recorded metformin 500 mg tablet 500 mg PO BID #90 tabs 06/07/20 amoxicillin 500 mg tablet 500 mg PO BID #14 tabs 06/25/21 metformin 500 mg tablet 500 mg PO BID #90 tabs 02/18/22 metformin 500 mg tablet 500 mg PO BID #60 tabs 03/10/23 blood-glucose meter #1 ea 08/31/23 metformin 500 mg tablet 500 mg PO BID 60 days #120 tabs 08/31/23 Allergies Allergy/AdvReac Type Severity Reaction Status Date / Time peach [PEACH] Allergy Intermediate ITCHING Verified 01/28/24 08:17 avocado Allergy Anaphylaxis Verified 08/31/23 13:27 SEASONAL ALLERGIES Allergy Unknown RUNNY NOSE Uncoded 08/31/23 13:27 Review of Systems 2 Constitutional: Constitutional: Reports no additional constitutional complaints ENT: Reports system reviewed and no additional complaints, except as documented Gastrointestinal: Gastrointestinal: Reports no additional gastrointestinal complaints [facility] Past Medical History Attestation statement: The following information was validated with the patient. [facility] Narrative: Type 2 diabetes Medical History Type 2 diabetes mellitus Pneumothorax Surgical History History of appendectomy Social History Social History Alcohol intake: current Alcohol intake frequency: does not drink Patient Tobacco Use Status: Never used Tobacco Smoked in Last 30 Days: No Use of substances other than those prescribed or required for medical reasons: No Advance Directives: No Advance Directives Information Provided: No Physical Exam ED Vital Signs: Vital Signs - 24 hr 01/28/24 08:15 01/28/24 09:56 Temperature 98 F 98.1 F Pulse Rate 87 68 Respiratory Rate 18 18 Blood Pressure 119/81 117/89 Pulse Oximetry 99 99 Oxygen Delivery Method Room Air Room Air BMI result Body Mass Index 29.5 Const General: cooperative Nutritional Appearance: average body habitus Orientation/consciousness: patient oriented x3 Limitations: no limitations HENMT Head: Yes normal to inspection General nose exam: Normal external nose present Mouth: Normal oral and palatal mucosa present Throat: Yes posterior oropharynx normal Neck Neck: Yes normal visual inspection Chest Chest palpation & inspection: normal inspection of the chest Resp Effort & Inspection: normal respiratory effort Auscultation: clear to auscultation bilaterally Cardio Jugular venous distension: no JVD Rate: regular rate Rhythm: regular rhythm GI Inspection: Yes normal to inspection Palpation (GI): Soft to palpation Skin General skin exam: no rashes or lesions noted Rashes: no rashes Neuro General: patient oriented x3 Course Reevaluation(s) Reevaluation #1: Feels better labs okay vital signs stable anticipate discharge Medications Administered Discontinued Medications Generic Name Dose Route Start Last Admin Trade Name Freq PRN Reason Stop Dose Admin Sodium Chloride 1,000 mls @ 999 mls/hr 01/28/24 08:30 01/28/24 09:49 Ns IVCONT 01/28/24 09:30 Infused .Q1H1M BALWINDER Infusion Medical Decision Making Medical Decision Making [facility] Narrative: Patient presented to the emergency room with malaise weakness will check labs and reassess Differential Diagnosis Differential Diagnoses: The differential diagnosis associated with the presentation includes DKA/hyperglycemia/dehydration/electrolyte abnormality Admission/Observation Consideration of admission/observation: Escalation of care including admission/observation considered Lab Data [facility] Lab Attestation statement: I reviewed the patient's lab results. 01/28/24 08:53 01/28/24 08:52 Labs: Lab Results 01/28/24 01/28/24 01/28/24 Range/Units 08:19 08:52 08:53 WBC 4.3 L (4.8-10.8) X10*3/uL RBC 4.85 D (4.60-5.80) X10*6/uL Hgb 14.2 D (14.0-18.0) g/dl Hct 39.8 L D (42.0-52.0) % MCV 82.1 (80.0-98.0) fL MCH 29.3 (27.0-33.0) pg MCHC 35.7 (31.0-36.0) g/dl RDW 12.2 (11.0-16.0) % Plt Count 153 L (160-400) X10*3/uL MPV 10.5 (9.4-12.4) fL Immature Gran % (Auto) 0.2 (0.0-0.4) % Neut % (Auto) 58.1 (45-73) % Lymph % (Auto) 29.2 (20-40) % [place]iba % (Auto) 8.8 (2-11) % Eos % (Auto) 3.2 (0-4) % Baso % (Auto) 0.5 (0-2) % Lymph # (Auto) 1.3 (1.2-4.9) X10*3/uL Ceiba # (Auto) 0.4 (0.1-1.2) X10*3/uL Eos # (Auto) 0.1 (0.0-0.4) X10*3/uL Baso # (Auto) 0.0 (0.0-0.2) X10*3/uL Abs Immat Gran (auto) 0.01 (0.00-0.03) X10*3/uL Absolute Neuts (auto) 2.5 (2.0-8.3) x10*3/uL Absolute Nucleated RBC 0.000 (0.0-0.012) X10*3/uL Nucleated RBC % (auto) 0.0 (0.0-0.2) /100WBC Sodium 144 (135-145) mmol/L Potassium 4.3 (3.3-5.1) mmol/L Chloride 109 H (96-108) mmol/L Carbon Dioxide 26 (22-29) mmol/L Anion Gap 13 (12-20) BUN 11 (9-16) mg/dL Creatinine 0.96 (0.5-1.4) mg/dL Estim Creat Clear Calc 121.3 Estimated GFR > 60 POC Glucose 193 H (60-115) mg/dL Random Glucose 109 (60-115) mg/dL Calcium 8.8 D (8.4-10.2) mg/dL Total Bilirubin 0.4 (0.0-1.0) mg/dL AST 13 (5-37) U/L ALT 12 (0-40) U/L Alkaline Phosphatase 50 (39-117) U/L Total Protein 6.4 L (6.5-8.0) g/dL Albumin 3.7 (3.5-5.0) g/dL Discharge Plan Discharge Clinical Impression: Weakness, Dehydration Patient Disposition: Home, Self-Care Instructions: Weakness (ED) Additional Instructions: Follow-up with your primary care physician, drink plenty of fluids return if you worse any concern Prescriptions: No Action metformin 500 mg tablet 500 mg PO BID Qty: 90 0RF metformin 500 mg tablet 500 mg PO BID Qty: 90 0RF amoxicillin 500 mg tablet 500 mg PO BID Qty: 14 0RF metformin 500 mg tablet 500 mg PO BID Qty: 60 2RF metformin 500 mg tablet 500 mg PO BID 60 Days Qty: 120 0RF (DME) blood-glucose meter Kit See Rx Instructions .Route Qty: 1 0RF Rx Instructions: As directed Referrals: Physician,None [Primary Care Provider] - 2 days Interventions: ED Discharge Assessment Last Done: 01/28/24 09:56 Discharge Date/Time: 01/28/24 09:58 Print Language: [place] Zealander
[2024-01-28] MEDS: 0.9 % Sodium Chloride 1,000 ML 999 ML IVCONT (08:27)
--- NOTE | 2024-01-28 08:33 | PC.NURSE ---
Reports woke up not feeling right, jittery , reports he is diabetic and feels like his sugar is high. Denies insulin use, takes metformin (compliant). Reports hx of high BGL episodes requiring hospitalization. Denies pain, fevers, recent illnesses, SOB. Alert and oriented, breathing even and unlabored, skin warm and dry, VSS.
[2024-01-28 08:56] LABS: MANUAL DIFF FLAG NO
[2024-01-28 08:59] LABS: Basophils Percent Auto 0.5 % (0-2); Eosinophils Absolute Auto 0.1 X10*3/uL (0.0-0.4); Eosinophils Percent Auto 3.2 % (0-4); Hematocrit 39.8 % (42.0-52.0); Hemoglobin 14.2 g/dl (14.0-18.0); Imm Gran Abs Auto 0.01 X10*3/uL (0.00-0.03); Imm Gran Pct Auto 0.2 % (0.0-0.4); Lymphocytes Absolute Auto 1.3 X10*3/uL (1.2-4.9); Lymphocytes Percent Auto 29.2 % (20-40); Mean Corpuscular HGB Conc 35.7 g/dl (31.0-36.0); Mean Corpuscular Hemoglobin 29.3 pg (27.0-33.0); Mean Corpuscular Volume 82.1 fL (80.0-98.0); Mean Platelet Volume 10.5 fL (9.4-12.4); Monocytes Absolute Auto 0.4 X10*3/uL (0.1-1.2); Monocytes Percent Auto 8.8 % (2-11); Neutrophils Absolute Auto 2.5 x10*3/uL (2.0-8.3); Neutrophils Percent Auto 58.1 % (45-73); Platelet Count 153 X10*3/uL (160-400); Red Blood Count 4.85 X10*6/uL (4.60-5.80); Red Cell Distribution Width 12.2 % (11.0-16.0); White Blood Count 4.3 X10*3/uL (4.8-10.8)
[2024-01-28 09:39] LABS: Alanine Aminotransferase 12 U/L (0-40); Albumin Level 3.7 g/dL (3.5-5.0); Alkaline Phosphatase 50 U/L (39-117); Anion Gap 13 (12-20); Aspartate Amino Transferase 13 U/L (5-37); Bilirubin Total 0.4 mg/dL (0.0-1.0); Blood Urea Nitrogen 11 mg/dL (9-16); Calcium 8.8 mg/dL (8.4-10.2); Carbon Dioxide 26 mmol/L (22-29); Chloride 109 mmol/L (96-108); Creatinine Clr Calc Pharmacy 121.3; Estimated Glomerular Filt Rate > 60; Glucose Random 109 mg/dL (60-115); Potassium 4.3 mmol/L (3.3-5.1); Sodium 144 mmol/L (135-145); Total Protein 6.4 g/dL (6.5-8.0)
[2024-01-28 09:56] VITALS: BP 117/89; PULSE 68; RESP 18; TEMP 36.7; O2SAT 99
== END 2024-01-28 09:58 | disposition home or self-care (01) ==
PROVIDERS: Emergency Provider Emergency Medicine
DX: E86.0 Dehydration (principal); R42 Dizziness and giddiness; Z79.899 Other long term (current) drug therapy
CPT/HCPCS: 36415; 80053; 82947; 85025; 99283; 99284